=== PATIENT | male | born 1940 | race Caucasian/White ===

== ENCOUNTER 2017-05-03 14:43 | Observation (INO) ==
--- NOTE | 2017-05-03 15:15 | Emergency Department Note ---
Disposition Clinical Impression: Syncope due to orthostatic hypotension Disposition: Admitted As Inpatient Condition: Undetermined Referrals: NO,PCP [Non-Partnered Physician] - Forms: ED Satisfaction Letter Time of Disposition: 18:27 Syncope HPI - General Chief Complaint: ED Syncope Stated Complaint: "Passed Out Twice" Time Seen by Provider: 05/03/17 14:59 Source: patient, family Mode of arrival: wheelchair Limitations: no limitations Nursing Notes Reviewed: Yes Vital Signs Reviewed: Yes - History of Present Illness HPI Narrative: \\76-year-old male arrives to [facility] emergency department after having 2 syncopal episodes today. The patient stated that the patient was in the kitchen with her and was not "acting right" and the patient fell backwards and hit his head on the wall. The patient was out for roughly 1 minute. The patient woke up this and was baseline. The patient stated a roughly 20 minutes later when he was going from a laying to a standing position he "went out again" and woke up on the couch found by his . The patient recently started antihypertensive, lisinopril and has been keeping his blood pressures on record. The patient denies any chest pain, difficulty breathing, fever, chills, focalized weakness. The patient denies any previous history of syncope. Pt Subjective Complaint: loss of consciousness Onset (ago): unknown Duration: minutes(s) Prodromal Symptoms: lightheaded Witnessed: yes - by other () Injuries Sustained Associated with Event: head (Small hematoma) Current Symptoms: back to baseline History: none Treatments prior to arrival: none Associated trauma secondary to event: No - Related Data Allergies Allergy/AdvReac Type Severity Reaction Status Date / Time No Known Allergies Allergy Verified 05/03/17 14:47 All systems ED: reviewed and negative except as stated. Constitutional: Denies: fever, chills, weakness, weight change Eyes: Denies: eye pain, eye discharge, vision change ENT ED: Denies: ear pain, throat pain, dental pain, hearing loss, epistaxis, congestion, dysphagia Cardiovascular: Denies: chest pain, palpitations, dyspnea on exertion, edema, syncope Respiratory: Reports: as per HPI Gastrointestinal: Denies: abdominal pain, nausea, vomiting, diarrhea, constipation, hematemesis, melena, hematochezia Genitourinary: Denies: urgency, dysuria, frequency, hematuria Musculoskeletal: Denies: back pain, neck pain, arthralgia, myalgia Neurological: Denies: headache, weakness, numbness, paresthesias, confusion, abnormal gait, vertigo Past Medical History - Past Medical History Attestation: Yes The following information was validated with the patient. Source: patient Medical history: Reports: diabetes, hyperlipidemia Surgical history: Reports: non-contributory - Social History Smoking Status: Current every day smoker Alcohol use: Reports: none Drug use: Reports: none Physical Exam Physical Exam: General: Patient alert, no acute distress, not lethargic HEENT: Head normal inspection, atraumatic, PERRLA, oropharynx grossly intact and normal, trachea midline, no JVD, small hematoma on crown of head Chest: Nontraumatic, nontender, normal chest rise CV: RRR with no murmurs, rubs, gallops Respiratory: Lungs clear to auscultation bilaterally, no rales, rhonchi, wheezes. Abdomen: Normal inspection, Normal bowel sounds 4 quadrants, nontender to palpation : Patient deferred Extremities: Normal inspection, full range of motion, appropriate pulses, capillary refill under 2 seconds Neurological: Patient alert and oriented 3, cranial nerves II through XII grossly intact, GCS 15, muscle strength 5/5 bilaterally in upper and lower extremities. No paresthesias noted Skin: Warm, intact, no rashes noted - General Limitations: no limitations General appearance: alert, in no apparent distress Course Vital Signs Temperature 98.3 F 05/03/17 14:45 Pulse Rate 77 05/03/17 14:45 Respiratory Rate 18 05/03/17 14:45 Blood Pressure 147/68 05/03/17 14:45 O2 Sat by Pulse Oximetry 97 05/03/17 14:45 Temperature 98.3 F 05/03/17 14:45 Pulse Rate 96 05/03/17 17:51 Respiratory Rate 18 05/03/17 17:51 Blood Pressure 121/60 05/03/17 17:51 O2 Sat by Pulse Oximetry 96 05/03/17 17:51 Oxygen Delivery Oxygen Delivery Room Air Syncope - Lab Data Result diagrams: 05/03/17 15:29 05/03/17 15:29 Lab Results 05/03/17 05/03/17 05/03/17 Range/Units 14:48 15:29 15:29 WBC 8.6 (4.3-11.1) K/mcL RBC 3.93 L (4.19-5.50) M/mcL Hgb 12.7 L (12.9-16.9) g/dL Hct 37.3 L (37.5-50.1) % MCV 94.9 (83.0-100.0) fL MCH 32.3 (28.0-33.3) pg MCHC 34.0 (31.6-35.5) g/dL RDW 12.9 (11.5-14.5) % Plt Count 265 (140-400) K/mcL MPV 9.4 (9.4-12.4) fL Immature Gran % 0.4 (0-4) % Seg Neutrophils % 68.5 % Lymphocytes % 22.3 % Monocytes % 6.8 % Eosinophils % 1.5 % Basophils % 0.5 % Neutrophils # 5.9 (1.6-8.9) K/mcL Lymphocytes # 1.9 (0.6-4.6) K/mcL Monocytes # 0.6 (0.0-1.3) K/mcL Eosinophils # 0.1 (0.0-0.6) K/mcL Basophils # 0.0 (0.0-0.2) K/mcL Sodium 138 (136-145) mEq/L Potassium 4.6 H (3.5-4.5) mEq/L Chloride 104 (98-109) mEq/L Carbon Dioxide 25 (19-29) mEq/L BUN 35 H (8-26) mg/dL Creatinine 1.51 H (0.72-1.25) mg/dL Est GFR ( Amer) 54 L (> 60) Est GFR (Non-Af Amer) 45 L (> 60) BUN/Creatinine Ratio 23 (6-26) Glucose 126 H (70-99) mg/dL POC Glucose 177 H (58-89) Calculated Osmolality 296 (280-300) Calcium 9.3 (8.6-10.8) mg/dL Total Bilirubin 0.5 (0.2-1.2) mg/dL AST 10 (5-34) Units/L ALT 8 (0-55) Units/L Alkaline Phosphatase 61 (38-126) Units/L Troponin I (0-0.03) ng/mL Serum Total Protein 7.0 (6.0-8.3) g/dL Albumin 3.7 (3.5-5.0) g/dL Globulin 3.3 (2.4-3.5) g/dL Albumin/Globulin Ratio 1.1 (1.1-2.2) /07/12 Range/Units 15:29 WBC (4.3-11.1) K/mcL RBC (4.19-5.50) M/mcL Hgb (12.9-16.9) g/dL Hct (37.5-50.1) % MCV (83.0-100.0) fL MCH (28.0-33.3) pg MCHC (31.6-35.5) g/dL RDW (11.5-14.5) % Plt Count (140-400) K/mcL MPV (9.4-12.4) fL Immature Gran % (0-4) % Seg Neutrophils % % Lymphocytes % % Monocytes % % Eosinophils % % Basophils % % Neutrophils # (1.6-8.9) K/mcL Lymphocytes # (0.6-4.6) K/mcL Monocytes # (0.0-1.3) K/mcL Eosinophils # (0.0-0.6) K/mcL Basophils # (0.0-0.2) K/mcL Sodium (136-145) mEq/L Potassium (3.5-4.5) mEq/L Chloride (98-109) mEq/L Carbon Dioxide (19-29) mEq/L BUN (8-26) mg/dL Creatinine (0.72-1.25) mg/dL Est GFR ( Amer) (> 60) Est GFR (Non-Af Amer) (> 60) BUN/Creatinine Ratio (6-26) Glucose (70-99) mg/dL POC Glucose (58-89) Calculated Osmolality (280-300) Calcium (8.6-10.8) mg/dL Total Bilirubin (0.2-1.2) mg/dL AST (5-34) Units/L ALT (0-55) Units/L Alkaline Phosphatase (38-126) Units/L Troponin I 0.00 (0-0.03) ng/mL Serum Total Protein (6.0-8.3) g/dL Albumin (3.5-5.0) g/dL Globulin (2.4-3.5) g/dL Albumin/Globulin Ratio (1.1-2.2) - EKG Data EKG attestation: Yes I reviewed and interpreted this EKG. EKG results narrative: Heart rate 70 bpm. DE interval 107 ms. QTC 419 ms. Normal axis. Normal sinus rhythm with right bundle branch block. No ST elevation or ST depression noted. New right bundle branch block from EKG from 12/14/2011. No other acute changes noted.
--- NOTE | 2017-05-03 15:30 | Emergency Department Note ---
START Narrative - START START: I examined this patient and my medical decision-making was reviewed with the CONCRETE FENCE BUILDER/PA/Advanced Practice Nurse/Resident Physician. I agree with the documented findings, disposition and treatment plan as described except to the extent set forth below. ED attending note: I saw this Patient with the emergency medicine resident Dr. Paz. Please see a copy of his note for details of the H&P, evaluation, management and disposition of this emergency Department patient. We independently had [id number] contact with the patient. Briefly: 76-year-old male history of hypertension presents ambulatory with syncope 2. No prior episodes. Had his lisinopril formulation changed over the past week or so. One episode occurred while sitting the other one occurred from a rising position. The total duration was 1 minute. He awoke at baseline mental status. He is awake and alert GCS 15 NIH is 0. EKG shows what appears to be new right bundle-branch block. However the available old EKG is from 2011. Patient will get screening workup and consisting of screening labs noncontrast CT of the head urinalysis among others. Provided 40 minutes of critical care services for this patient. Disposition pending.
[2017-05-03 15:40] LABS: Basophils % 0.5 %; Eosinophils # 0.1 K/mcL (0.0-0.6); Eosinophils % 1.5 %; Hematocrit 37.3 % (37.5-50.1); Hemoglobin 12.7 g/dL (12.9-16.9); Immature Granulocytes % 0.4 % (0-4); Lymphocytes # 1.9 K/mcL (0.6-4.6); Lymphocytes % 22.3 %; Mean Corpuscular Hemoglobin 32.3 pg (28.0-33.3); Mean Corpuscular Volume 94.9 fL (83.0-100.0); Mean Platelet Volume 9.4 fL (9.4-12.4); Monocytes # 0.6 K/mcL (0.0-1.3); Monocytes % 6.8 %; Neutrophils # 5.9 K/mcL (1.6-8.9); Platelet Count 265 K/mcL (140-400); Red Blood Count 3.93 M/mcL (4.19-5.50); Red Cell Distribution Width 12.9 % (11.5-14.5); Segmented Neutrophils % 68.5 %
[2017-05-03 15:50] LABS: Albumin 3.7 g/dL (3.5-5.0); Albumin/Globulin Ratio 1.1 (1.1-2.2); Bilirubin,Total 0.5 mg/dL (0.2-1.2); Calcium 9.3 mg/dL (8.6-10.8); Globulin 3.3 g/dL (2.4-3.5); Potassium 4.6 mEq/L (3.5-4.5)
[2017-05-03] MEDS ORDERED: 0.9 % Sodium Chloride 1,000 ML IVC ONE (16:00)
[2017-05-03] MEDS ORDERED: Naloxone 0.4 MG/ML INJ IVP PRN (23:10)
[2017-05-03] MEDS ORDERED: *HR* HYDROcodone/Acet 5/325 mg TABLET PO PRN (23:10)
[2017-05-03] MEDS ORDERED: Acetaminophen 325 MG TABLET PO PRN (23:10)
[2017-05-03] MEDS ORDERED: Ondansetron 4 MG/2 ML VIAL IVP PRN (23:10)
[2017-05-03] MEDS ORDERED: *HR* Morphine 2 MG/ML SYRINGE IVP PRN (23:10)
[2017-05-03] MEDS ORDERED: Dextrose Gel 15 GM PO PRN ×2 (23:27)
[2017-05-03] MEDS ORDERED: *HR* Dextrose 50 % in Water (Syg) 50 ML SYRINGE IVP PRN (23:27)
[2017-05-03] MEDS ORDERED: D5% in Water 1,000 ML IVC PRN (23:27)
--- NOTE | 2017-05-03 23:43 | Event Note ---
Date of Encounter: 05/04/17 Time of Encounter: 23:43 . 1. Syncopal episodes due to Orthostatic hypotension likely secondary to dehydration Fall precautions, continue IV fluids, hold blood pressure medications Check echocardiogram May repeat orthostatics in the morning 2. Acute renal failure likely secondary to dehydration and also increase in the dosing of his lisinopril Hold blood pressure medications including hydrochlorothiazide and lisinopril Continue fluids 3. Diabetes type 2, continue insulin sliding scale 4. Tobacco use. Smoking cessation counseling, nicotine patch 5. Hyperlipidemia, stable The patient will be admitted for observation, full code. Time spent on this admission 40 minutes. H&P to be written by nurse practitioner Roberto Vallejo
--- NOTE | 2017-05-03 23:54 | Internal Med History&Physical ---
<LisabaronmichaelRoberto alarcon - Last Filed: 05/04/17 00:52> Date of Encounter: 05/04/17 Time of Encounter: 23:53 Assessment and Plan (1) Syncope due to orthostatic hypotension Current visit: Yes Status: Acute Assess: Mr. Simons presents with chief complaint of 2 syncopal episodes earlier today. First episode occurred in the kitchen the patient fell backwards and hit his head on the wall and was unconscious for approximately 1 minute. 20 minutes later the patient was laying down and moved to a standing position and passed out again. He was found by his . Patient reports these symptoms syncopal episodes have never happened before. Plan: Orthostatic BPs ordered Orthostatic vital signs ordered Begin IV fluids judiciously for dehydration status due to acute renal failure Bilateral carotid Doppler duplex imaging ordered EV echocardiogram ordered Continuous cardiac telemetry ordered Supplemental O2 ordered Hold patient's BP medication Falls precautions/bedrest with bathroom privileges/[id number] only orders Monitor patient and vital signs (2) Acute renal failure Current visit: Yes Status: Acute Assess: Patient presents with acute renal failure likely secondary to dehydration and due to dosage change in patient's Lisinopril. Plan: Hold BP medications IV fluids 0.9 NS at 75 mL/HR Monitor I&O Qualifiers: Acute renal failure type: unspecified Qualified Code(s): N17.9 - Acute kidney failure, unspecified (3) Diabetes Current visit: Yes Status: Chronic Assess: Patient presents with history of type 2 diabetes managed by oral hypoglycemic medications. Plan: Blood glucose monitoring ordered ACHS Hold Metformin Low-dose correction insulin ordered Hypoglycemic protocol ordered Diabetic diet ordered Qualifiers: Diabetes mellitus type: type 2 Diabetes mellitus complication status: without complication Diabetes mellitus nursing home insulin use: without nursing home use Qualified Code(s): E11.9 - Type 2 diabetes mellitus without complications (4) Hyperlipidemia Current visit: Yes Status: Chronic Assess: Patient presents with history of chronic hyperlipidemia. Plan: Lipid panel ordered Continue Simvastatin Qualifiers: Hyperlipidemia type: unspecified Qualified Code(s): E78.5 - Hyperlipidemia , unspecified (5) Hypertension Current visit: Yes Status: Chronic Assess: Patient presents with history of chronic hypertension. Patient's lisinopril dosage was recently increased by his PCP. Plan: Hold Lisinopril due to syncopal episodes r/t orthostatic hypotension Orthostatic BPs ordered Orthostataic vital signs ordered Monitor patient and vital signs Qualifiers: Hypertension type: essential hypertension Qualified Code(s): I10 - Essential (primary) hypertension (6) Tobacco abuse Current visit: Yes Status: Chronic Assess: Patient presents with history of chronic tobacco abuse. Patient reports he currently smokes 1 pack per day. Plan: Smoking cessation education provided to patient Nicotine patch ordered (7) DVT prophylaxis Current visit: Yes Status: Acute Assess: Patient to be placed on DVT prophylaxis to to inpatient status protocol and bed rest status. Plan: Heparin 5,000 units SQ Q8 ordered Internal Medicine - H&P: HPI Chief complaint: Syncope Admitted From: Emergency Dept Plans for Post Hospital Care: Home History of present illness: Mr. Simons is a 76 year old male who presents to the ED with chief complaint of 2 syncopal episodes earlier today. First episode occurred in the kitchen the patient fell backwards and hit his head on the wall and was unconscious for approximately 1 minute. 20 minutes later the patient was laying down and moved to a standing position and passed out again. He was found by his . Patient also reports having headaches in the front of his head as well as the back lasting for several seconds coinciding with dizziness and syncopal episodes. He reports these headaches have been going on for the past 2 years. Patient states he has never blacked out before. Mr. Simons denies any chest pain, SOB, fever, chills, recent illness, localized or generalized weakness. Patient recently started lisinopril and hydrochlorothiazide for his blood pressures which he keeps records of daily. Mr. Simons has a history of diabetes managed with oral hypoglycemics, hyperlipidemia, hypertension. Patient denies any previous cardiac history. Patient reports he is a current smoker smoking 1 pack per day. On exam, patient has no neurological deficits Whole weakness on either side of his body. There is no evidence of facial drooping or hemiparesis on either side of patient's body. Patient has heart murmur evident upon auscultation. Patient to be admitted as inpatient status with continuous cardiac telemetry, orthostatic BPs and vitals twice a day, MRI of head and brain without contrast, bilateral carotid duplex imaging, stat chest x-ray, and IV fluids at 75 mL per hour. Patient is falls precautions bedrest with bathroom privileges and up with assist only. Patient to be monitored closely. Past Med Surg Social Fam HX - Past Medical History Source: patient Medical history: diabetes, hyperlipidemia, hypertension Psychiatric history: no psych history - Past Surgical History Surgical History: no surgical history - Social History Smoking Status: Current every day smoker Packs per day: 1 PPD Alcohol use: none Drug use: none Occupational status: employed Current living situation: Home, With Family Activity Level: Independent ambulation Recent Out of Country Travel Within the Last 8 Weeks: No Exposure or Possible Exposure to Illness During Travel: No - Family History Father Race: Family Member Ethnicity: Non- Living Status: Age at : 63 Cause of : PA Hx Family Cardiac Disorders: Yes (PA, Stroke) Mother Race: Family Member Ethnicity: Non- Living Status: Age at : 80 Cause of : Leukemia Hx Family Cancer: Yes (Leukemia) Brother Race: Family Member Ethnicity: Non- Living Status: Still Living Hx Family Cardiac Disorders: Yes (HD) Internal Medicine - H&P: Meds Felodipine [Felodipine ER] 10 mg PO DAILY 05/03/17 [History] Lisinopril/Hydrochlorothiazide [Zestoretic 20-12.5 mg Tablet] 1 each PO BID 07/12 [History] Simvastatin [Zocor] 20 mg PO HS 05/03/17 [History] metFORMIN [Glucophage] 850 mg PO TIDWM 05/03/17 [History] Allergies No Known Allergies Allergy (Verified 05/03/17 14:47) All Systems PM: A 10-system review of systems was performed and is negative for pertinent findings except as documented above in the HPI. - Constitutional Constitutional: as per HPI, falls (2 syncopal episodes), no chills, no fever(s) , no night sweats - EENT Eyes: no change in vision, no discharge, no pain, no photophobia Ears: no ear discharge, no ear pain, no tinnitus Nose, mouth and throat: no dysphagia, no nasal discharge, no neck pain, no sore throat - Breasts Breasts: as per HPI - Cardiovascular Cardiovascular ROS IM: as per HPI, syncope - Respiratory Respiratory: no cough, no dyspnea, no wheezing, no excessive phlegm production - Gastrointestinal Gastrointestinal: no abdominal pain, no diarrhea, no hematemesis, no hematochezia, no melena, no nausea, no vomiting - Genitourinary Genitourinary ROS male: as per HPI - Musculoskeletal Musculoskeletal ROS IM: no numbness, no tingling - Integumentary Integumentary IM: no rash, no unusual bruising - Neurological Neurological ROS: as per HPI, headache(s), other (2 syncopal episodes) - Psychiatric Psychiatric: as per HPI - Endocrine Endocrine IM: as per HPI - Hematologic/Lymphatic Hematologic/Lymphatic: no easy bruising - Allergic/Immunologic Allergic/Immunologic: as per HPI - Constitutional Vitals: Temp Pulse Resp BP Pulse Ox 98.1 F 59 16 152/57 95 05/03/17 21:58 05/03/17 21:58 05/03/17 21:58 05/03/17 21:58 05/03/17 21:58 General appearance: Present: cooperative, A&O X 3, pleasant, no acute distress, answers questions appropriately - Head Head exam: Present: atraumatic, normocephalic - Eye Eye exam: Present: PERRL, conjuntiva pink, sclera anicteric Pupils: Present: PERRL - ENT ENT exam: Present: normal exam, normal external ear exam - Neck Neck exam general surgery: Present: supple, trachea midline. Absent: lymphadenopathy - Respiratory Respiratory exam: Present: decreased breath sounds - Cardiovascular Cardiovascular exam: Present: diastolic murmur - GI/Abdominal GI/Abdominal exam: Present: normal bowel sounds, soft, no peritoneal signs. Absent: distended, tenderness - Rectal Rectal exam: Present: deferred - Additional comments: exam deferred. - Extremities Exam Extremities exam: Present: warm, radial pulses palpable and symetrical. Absent : calf tenderness, cyanotic, pedal edema - Back Exam Back exam: Present: normal inspection - Neurological Exam Neurological exam: Present: CN II-XII intact, oriented X3, no focal deficits. Absent: pronater drift, facial droop, speech deficit - Psychiatric Psychiatric exam: Present: normal affect, normal mood - Skin Skin exam: Present: dry, intact Internal Med - H&P Results - Labs CBC & Chem 7: 05/03/17 15:29 05/03/17 15:29 - EKG Data EKG shows normal: sinus rhythm - EKG Data Prior EKG available for review: yes EKG comments: 05/04/17 00:28 EKG dated 12/14/11 shows sinus bradycardia, inferior S-T changes, consider ischemia. EKG dated 05/03/17 shows sinus rhythm with short FL interval, right bundle branch block. - Diagnostic Studies CT scan - head Additional comments: Impressions Head CT 05/03/17 15:10 IMPRESSION: No acute intracranial abnormality. D/ / 05/03/2017 17:18:34 Christopher Durham MD / denisse Interpreting Provider: Christopher Durham MD <AlmitaLandenrosemarieJaspreet costello H - Last Filed: 05/04/17 04:18> Date of Encounter: 05/04/17 Internal Medicine - H&P: HPI History of present illness: Mr. Simons is a 76 year old male All Systems PM: A 10-system review of systems was performed and is negative for pertinent findings except as documented above in the HPI. - Constitutional Vitals: Temp Pulse Resp BP Pulse Ox 97.7 F 55 16 112/63 92 05/04/17 00:39 05/04/17 00:39 05/04/17 00:39 05/04/17 00:39 05/04/17 00:39 Internal Med - H&P Results - Labs CBC & Chem 7: 05/03/17 15:29 05/03/17 15:29 - Impressions ITS Impressions Chest X-Ray 05/03/17 23:18 IMPRESSION: 1. No acute cardiopulmonary disease. D/ / Sincere Murray MD / Sincere Murray MD Interpreting Provider: Sincere Murray MD - Attending Attestation 1. Syncopal episodes due to Orthostatic hypotension likely secondary to dehydration Fall precautions, continue IV fluids, hold blood pressure medications Check echocardiogram May repeat orthostatics in the morning 2. Acute renal failure likely secondary to dehydration and also increase in the dosing of his lisinopril Hold blood pressure medications including hydrochlorothiazide and lisinopril Continue fluids 3. Diabetes type 2, continue insulin sliding scale 4. Tobacco use. Smoking cessation counseling, nicotine patch 5. Hyperlipidemia, stable The patient will be admitted for observation, full code. Time spent on this admission 40 minutes. I examined this patient and my medical decision-making was reviewed with the WOOD TECHNOLOGIST/PA/Advanced Practice Nurse/Resident Physician. I agree with the documented findings, disposition and treatment plan as described except to the extent set forth below.
[2017-05-04] MEDS: *HR* Heparin 5,000 UNIT/ML VIAL SQ SCH ×3 (00:47→15:25)
[2017-05-04] MEDS: 0.9 % Sodium Chloride 1,000 ML IVC SCH ×2 (00:47→17:11)
[2017-05-04] MEDS: Nicotine 21 MG PATCH.TD24 TD SCH ×2 (00:48→08:36)
[2017-05-04] MEDS: Ipratropium/Albuterol Neb 3 ML IH SCH ×4 (03:53→22:47)
[2017-05-04 05:28] LABS: Basophils % 0.4 %; Eosinophils # 0.2 K/mcL (0.0-0.6); Eosinophils % 2.9 %; Hematocrit 36.1 % (37.5-50.1); Immature Granulocytes % 0.6 % (0-4); Lymphocytes # 1.9 K/mcL (0.6-4.6); Lymphocytes % 26.2 %; Mean Corpuscular HGB Conc 33.2 g/dL (31.6-35.5); Mean Corpuscular Hemoglobin 31.7 pg (28.0-33.3); Mean Corpuscular Volume 95.3 fL (83.0-100.0); Mean Platelet Volume 9.5 fL (9.4-12.4); Monocytes # 0.7 K/mcL (0.0-1.3); Monocytes % 9.8 %; Neutrophils # 4.3 K/mcL (1.6-8.9); Platelet Count 225 K/mcL (140-400); Red Blood Count 3.79 M/mcL (4.19-5.50); Red Cell Distribution Width 12.9 % (11.5-14.5); Segmented Neutrophils % 60.1 %
[2017-05-04 05:49] LABS: INR 1.1
[2017-05-04 05:52] LABS: Activated Partial Thrombo Time 28.6 Seconds (26.0-36.0); Alanine Aminotransferase 7 Units/L (0-55); Albumin 3.3 g/dL (3.5-5.0); Albumin/Globulin Ratio 1.1 (1.1-2.2); Alkaline Phosphatase 57 Units/L (38-126); Aspartate Amino Transferase 10 Units/L (5-34); BUN/Creatinine Ratio 24 (6-26); Bilirubin,Total 0.4 mg/dL (0.2-1.2); Blood Urea Nitrogen 29 mg/dL (8-26); Calcium 8.9 mg/dL (8.6-10.8); Carbon Dioxide 25 mEq/L (19-29); Chloride 108 mEq/L (98-109); Chol/HDL Ratio 3.9 (0-4.9); Cholesterol 133 mg/dL (< 200); Globulin 2.9 g/dL (2.4-3.5); Glucose 117 mg/dL (70-99); HDL Cholesterol 34 mg/dL (40-59); LDL Cholesterol,Calculated 79 mg/dL (0-99); Magnesium 2.1 mg/dL (1.6-2.6); Osmolality,Calculated 299 (280-300); Potassium 4.2 mEq/L (3.5-4.5); Sodium 141 mEq/L (136-145); Total Protein 6.2 g/dL (6.0-8.3); Triglycerides 99 mg/dL (< 150); eGFR For African Americans > 60 (> 60); eGFR For Non-African Americans 59 (> 60)
[2017-05-04] MEDS: Insulin LISPRO 300 UNITS/3 ML VIAL SQ SCH ×3 (08:03→17:07)
[2017-05-04] MEDS ORDERED: Lisinopril-HCTZ 20-12.5mg TABLET PO SCH (09:00)
--- NOTE | 2017-05-04 11:41 | Internal Med Progress Note ---
<Juan Pablo Buchanan - Last Filed: 05/04/17 14:19> Date of Encounter: 05/04/17 Time of Encounter: 13:00 - Assessment and plan (1) Syncope due to orthostatic hypotension Current Visit: Yes Status: Acute Assessment and plan: Patient reportedly had 2 syncopal episodes at home prior to admission to [facility]. With patient description of syncopal events, seems likely that his syncopal episodes were account of orthostatic hypotension/ dehydration due to his recently added lisinopril/hydrochlorothiazide. There is no description of headache, chest pain, lightheadedness, post ictal state, or description of seizure activity. Workup so far for potential CVA/TIA has been negative: Negative head CT, negative brain MRI, negative chest x-ray. Will wait for results of bilateral carotid Dopplers and echocardiogram. Likely syncopal episodes due to orthostatic hypotension Patient received 1 L bolus fluids followed by normal saline 75 mL an hour We will continue fluids and allow patient to take by mouth We will continue to monitor I's and O's We will continue patient on cardiac telemetry Continue supplemental oxygen as needed, wean as tolerated Continue to hold patient's blood pressure medication Continue monitoring patient vital signs per protocol Fall precautions/up with assist (2) Acute kidney injury Current Visit: Yes Status: Acute Assessment and plan: Patient has no known history of chronic kidney disease and her presentation to [facility] was found to have a elevated serum creatinine at 1.51. His elevation serum creatinine is disproportionate to the elevated BUN of 35, with a ratio greater than 20:1 would suggest possible dehydration contributing to his acute kidney injury. He received 1 L bolus fluids and has been continued on 75 mL per hour normal saline, he is found to have improved renal function this morning of serum creatinine 1.19, Maricel Quiles evidence to the thought that this is due to dehydration. We will continue to hold his blood pressure medications (lisinopril/ hydrochlorothiazide) We will continue IV fluids with normal saline at 75 mL an hour Continue to monitor patient I's and O's We will obtain renal function with morning chemistry panel (3) Hypertension Current Visit: Yes Status: Chronic Assessment and plan: Patient has history of essential hypertension for which she is PCP had begun treatment with lisinopril/hydrochlorothiazide on 03/29/17. He was reportedly taking 40/25 mg for the last month, with reported occasional hypotensive episodes. Although he has been eating and drinking his normal amount, he does report significant increase in urine on account of the hydrochlorothiazide. Reports sign vitals were negative. We will continue to hold patient blood pressure medication, will likely need change of home antihypertensive medications prior to discharge We will continue to monitor patient vitals and telemetry Consider changing blood pressure medication to amlodipine given patient age, will consider history of diabetes when adjusting patient antihypertensive regimen Qualifiers: Hypertension type: essential hypertension Qualified Code(s): I10 - Essential (primary) hypertension (4) Diabetes Current Visit: Yes Status: Chronic Assessment and plan: Patient normally uses oral hypoglycemic medications at home Hold metformin Before meals at bedtime blood glucose monitoring Diabetic diet Low dose sliding scale insulin before meals at bedtime Qualifiers: Diabetes mellitus type: type 2 Diabetes mellitus complication status: without complication 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 He is on home dose simvastatin. Lipid panel unremarkable except for slightly decreased HDL. Continue home simvastatin (20 mg by mouth at bedtime) Qualifiers: Hyperlipidemia type: unspecified Qualified Code(s): E78.5 - Hyperlipidemia , unspecified (6) DVT prophylaxis Current Visit: Yes Status: Acute Assessment and plan: 5000 units heparin subcutaneous 3 times a day - Subjective Interval history: Patient is doing well today. He denies any concerns/complaints currently. He denies any headache, dizziness, chest pain, palpitations, nausea/vomiting, diaphoresis. When stood up at bedside he does state that he feels slightly "wobbly." When asked about previous episodes of syncope department the hospital, he denies any preceding headaches, dizziness, or lightheadedness. He also denies having any episodes of confusion or fogginess after the event and denies having postictal state. He states that a few days prior to the event occurring felt like he had a little bit of a cold, but no serious illnesses. He does report that he was started on lisinopril/hydrochlorothiazide combined pill for blood pressure on 03/29/17 and that since starting that medication he had a few days of hypotension when he checked his blood pressure, prompting him not to take the medication that day. He also states that although he has been drinking his normal amount, he has been urinating a fair bit more on account of the hydrochlorothiazide. - Constitutional Vitals: Temp Pulse Resp BP Pulse Ox 97.8 F 57 16 138/59 96 05/04/17 08:00 05/04/17 08:00 05/04/17 08:00 05/04/17 09:00 05/04/17 08:00 General appearance: Present: cooperative, A&O X 3, pleasant, no acute distress, answers questions appropriately Exam: General: Cooperative, pleasant, no acute distress, alert and oriented 3, answers questions appropriately, patient reports some "wobbly" feeling and slight lightheadedness after standing a couple months HEENT: Normocephalic, atraumatic, neck supple, trachea midline, Conjunctiva pink , sclera anicteric, EOMI, PERRL, oral mucosa moist, no orophargeal erythema or exudates, slight bruit auscultated inpatient right carotid Respiratory: No accessory muscle usage, clear to auscultation bilaterally, no wheezes/rhonchi/rales appreciated Cardiovascular: Regular rate and rhythm, S1 and S2 present, no murmurs/rubs/ gallops/clicks appreciated GI/abdominal: Nondistended, nontender, soft, normal bowel sounds, no peritoneal signs Extremities: No calf tenderness, noncyanotic, no pedal edema appreciated, warm, lower extremity pulses palpable and symmetrical Neurological: Alert and oriented 3, no facial droop, no focal deficits Skin: Dry, intact, normal color Internal Medicine: Result - Labs CBC & Chem 7: 05/04/17 04:49 05/04/17 04:49 Labs: Short CBC 05/04/17 Range/Units 04:49 WBC 7.2 (4.3-11.1) K/mcL Hgb 12.0 L (12.9-16.9) g/dL Hct 36.1 L (37.5-50.1) % Plt Count 225 (140-400) K/mcL Neutrophils # 4.3 (1.6-8.9) K/mcL BMP 05/04/17 04:49 Sodium 141 Potassium 4.2 Chloride 108 Carbon Dioxide 25 BUN 29 H Creatinine 1.19 Glucose 117 H Calcium 8.9 Liver Function 05/04/17 Range/Units 04:49 Total Bilirubin 0.4 (0.2-1.2) mg/dL AST 10 (5-34) Units/L ALT 7 (0-55) Units/L Alkaline Phosphatase 57 (38-126) Units/L Albumin 3.3 L (3.5-5.0) g/dL - ABG Interpretation ABG results: PT/INR, D-dimer PT 12.0 Seconds (9.4-12.1) 05/04/17 04:49 - Impressions Impressions Chest X-Ray 05/03/17 23:18 IMPRESSION: 1. No acute cardiopulmonary disease. D/ / Sincere Murray MD / Sincere Murray MD Interpreting Provider: Sincere Murray MD Consult Discharge Plan - Plan Referrals: Silverman,Linwood Che MD [Primary Care Provider] - <Emanuel Lacey - Last Filed: 05/04/17 15:37> Date of Encounter: 05/04/17 - Constitutional Vitals: Temp Pulse Resp BP Pulse Ox 98.0 F 56 17 169/64 92 05/04/17 12:00 05/04/17 12:00 05/04/17 12:00 05/04/17 12:00 05/04/17 12:00 Internal Medicine: Result - Labs CBC & Chem 7: 05/04/17 04:49 05/04/17 04:49 Labs: Short CBC 05/04/17 Range/Units 04:49 WBC 7.2 (4.3-11.1) K/mcL Hgb 12.0 L (12.9-16.9) g/dL Hct 36.1 L (37.5-50.1) % Plt Count 225 (140-400) K/mcL Neutrophils # 4.3 (1.6-8.9) K/mcL BMP 05/04/17 04:49 Sodium 141 Potassium 4.2 Chloride 108 Carbon Dioxide 25 BUN 29 H Creatinine 1.19 Glucose 117 H Calcium 8.9 Liver Function 05/04/17 Range/Units 04:49 Total Bilirubin 0.4 (0.2-1.2) mg/dL AST 10 (5-34) Units/L ALT 7 (0-55) Units/L Alkaline Phosphatase 57 (38-126) Units/L Albumin 3.3 L (3.5-5.0) g/dL - ABG Interpretation ABG results: PT/INR, D-dimer PT 12.0 Seconds (9.4-12.1) 05/04/17 04:49 - Impressions Impressions Chest X-Ray 05/03/17 23:18 IMPRESSION: 1. No acute cardiopulmonary disease. D/ / Sincere Murray MD / Sincere Murray MD Interpreting Provider: Sincere Murray MD Brain MRI 05/03/17 23:26 IMPRESSION: Cerebral atrophy. No acute brain parenchymal abnormality. Mild mucoperiosteal thickening of the sinuses. D/ / 05/04/2017 12:57:14 Noemy Blandon MD / madi Interpreting Provider: Noemy Blandon MD - Attending Attestation I examined this patient and my medical decision-making was reviewed with the BUSINESS MANAGEMENT SPECIALIST/PA/Advanced Practice Nurse/Resident Physician. I agree with the documented findings, disposition and treatment plan as described except to the extent set forth below. Agree with Dr. Buchanan, follow echo, obtain TSH. D/W patient and his family.
[2017-05-04] MEDS: (Felodipine [Felodipine Er] 10 MG) PO SCH (12:04)
--- NOTE | 2017-05-04 16:41 | Carotid Imaging Report ---
Carotid Duplex Patient Name:Jac Simons Order Number:[id number] Procedure Date:05/04/2017 Date:1940ge:76 yrs Gender:Male Location:[facility] Room #: 2A36 Magistrate Judge:Jose Collazo RDCS Referring MD:Roberto Vallejo CNP log hooker:Linwood Silverman MD Reading MD:Eddie Borja MD Primary Indications:Syncope and headache Risk Factors Yes/No Hypertension Yes Diabetes Yes Hypercholesterolemia Yes Smoking Current Yes Previous Vascular Surgery Yes Impressions: The bilateral carotid arteries have minimal plaque throughout. Recommendations: After imaging the patient returned home. Findings Carotid Duplex: Right: There is nonstenotic plaque in the right proximal common carotid artery with a PSV of 94 cm/s and a EDV of 11 cm/s. There is smooth heterogeneous plaque. There is nonstenotic plaque in the right mid common carotid artery with a PSV of 80 cm/s and a EDV of 11 cm/s. There is smooth, heterogeneous calcified plaque. There is nonstenotic plaque in the right distal common carotid artery with a PSV of 70 cm/s and a EDV of 12 cm/s. There is smooth heterogeneous plaque. There is nonstenotic plaque in the right bifurcation with a PSV of 51 cm/s and a EDV of 10 cm/s. There is smooth, heterogeneous calcified plaque. There is nonstenotic plaque in the right proximal internal carotid artery with a PSV of 86 cm/s and a EDV of 15 cm/s. There is irregular, heterogeneous calcified plaque. There is nonstenotic plaque in the right mid internal carotid artery with a PSV of 88 cm/s and a EDV of 20 cm/s. There is smooth calcified plaque. The right distal internal carotid artery has a PSV of 116 cm/s and a EDV of 21 cm/s. The right eca has a PSV of 158 cm/s and a EDV of 19 cm/s. The right vertebral artery has a PSV of 77 cm/s and a EDV of 14 cm/s. Left: The left proximal common carotid artery has a PSV of 109 cm/s and a EDV of 19 cm/s. There is nonstenotic plaque in the left mid common carotid artery with a PSV of 86 cm/s and a EDV of 19 cm/s. There is smooth heterogeneous plaque. There is nonstenotic plaque in the left distal common carotid artery with a PSV of 87 cm/s and a EDV of 18 cm/s. There is smooth heterogeneous plaque. There is nonstenotic plaque in the left bifurcation with a PSV of 78 cm/s and a EDV of 13 cm/s. There is smooth, heterogeneous calcified plaque. There is nonstenotic plaque in the left proximal internal carotid artery with a PSV of 86 cm/s and a EDV of 16 cm/s. There is smooth heterogeneous plaque. There is nonstenotic plaque in the left mid internal carotid artery with a PSV of 109 cm/s and a EDV of 26 cm/s. There is smooth heterogeneous plaque. The left distal internal carotid artery has a PSV of 80 cm/s and a EDV of 18 cm/s. The left eca has a PSV of 217 cm/s and a EDV of 26 cm/s. The left vertebral artery has a PSV of 54 cm/s and a EDV of 16 cm/s. Prior Study: No prior study available for comparison. Carotid Results Right PSV EDV Assessment Proximal CCA 94 11 Non Stenotic Plaque Mid CCA 80 11 Non Stenotic Plaque Distal CCA 70 12 Non Stenotic Plaque Bifurcation 51 10 Non Stenotic Plaque Proximal ICA 86 15 Non Stenotic Plaque Mid ICA 88 20 Non Stenotic Plaque Distal ICA 116 21 Normal ECA 158 19 Normal Vertebral Artery 77 14 Normal Left PSV EDV Assessment Proximal CCA 109 19 Normal Mid CCA 86 19 Non Stenotic Plaque Distal CCA 87 18 Non Stenotic Plaque Bifurcation 78 13 Non Stenotic Plaque Proximal ICA 86 16 Non Stenotic Plaque Mid ICA 109 26 Non Stenotic Plaque Distal ICA 80 18 Normal ECA 217 26 Normal Vertebral Artery 54 16 Normal Ratio's Right ICA/CCA Ratio: 1.45 ICA/CCA Values: 116/80 Left ICA/CCA Ratio: 1.27 ICA/CCA Values: 109/86 Updated by Eddie Borja MD on 05/04/2017 4:35:09 PM electronically signed on 05/04/2017 4:37:39 PM with status of Final
[2017-05-04] MEDS ORDERED: Insulin LISPRO 300 UNITS/3 ML VIAL SQ SCH (21:00)
[2017-05-05] MEDS: *HR* Heparin 5,000 UNIT/ML VIAL SQ SCH ×2 (00:09→08:04)
[2017-05-05 03:12] LABS: BUN/Creatinine Ratio 22 (6-26); Blood Urea Nitrogen 23 mg/dL (8-26); Calcium 9.2 mg/dL (8.6-10.8); Carbon Dioxide 24 mEq/L (19-29); Chloride 109 mEq/L (98-109); Glucose 115 mg/dL (70-99); Osmolality,Calculated 299 (280-300); Potassium 4.1 mEq/L (3.5-4.5); Sodium 142 mEq/L (136-145); eGFR For African Americans > 60 (> 60); eGFR For Non-African Americans > 60 (> 60)
[2017-05-05] MEDS: Ipratropium/Albuterol Neb 3 ML IH SCH ×2 (04:27→11:52)
[2017-05-05] MEDS: Insulin LISPRO 300 UNITS/3 ML VIAL SQ SCH (08:03)
[2017-05-05] MEDS: Nicotine 21 MG PATCH.TD24 TD SCH (08:04)
[2017-05-05] MEDS: (Felodipine [Felodipine Er] 10 MG) PO SCH (08:04)
[2017-05-05] MEDS: 0.9 % Sodium Chloride 1,000 ML IVC SCH (08:06)
--- NOTE | 2017-05-05 08:54 | Electrocardiograph Report ---
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
[2017-05-05 11:57] VITALS: BP 176/72
--- NOTE | 2017-05-05 12:10 | Discharge Summary ---
Date of Encounter: 05/05/17 Time of Encounter: 12:07 - Discharge Diagnosis (1) Acute kidney injury Priority: Secondary Status: Acute (2) DVT prophylaxis Priority: Secondary Status: Acute (3) Syncope due to orthostatic hypotension Priority: Primary Status: Acute (4) Hypertension Priority: Secondary Status: Chronic Qualifiers: Hypertension type: essential hypertension Qualified Code(s): I10 - Essential (primary) hypertension (5) Tobacco abuse Priority: Secondary Status: Chronic - Discharge Medications Prescriptions: amLODIPine [Norvasc] 2.5 mg PO DAILY #7 tablet Home Medications: Simvastatin [Zocor] 20 mg PO HS 05/03/17 [History] metFORMIN [Glucophage] 850 mg PO TIDWM 05/03/17 [History] amLODIPine [Norvasc] 2.5 mg PO DAILY #7 tablet 05/05/17 [Rx] Allergies/Adverse Reactions: Allergies No Known Allergies Allergy (Verified 05/03/17 14:47) Procedures/tests Complete & Pending: Procedures Performed prior 72 hours Category Date Time Status MR head/brain wo con [MR] Routine MRI 05/03/17 23:26 Draft EV carotid duplex imaging BI Routine Y 05/04/17 23:21 Completed EV echocardiogram Routine Y 05/04/17 23:22 Completed Date of admission: 05/03/17 20:18 Primary care physician: Linwood Silverman MD Consults: 05/04/17 00:35 Consult to Physical Therapy [CONS] Routine Comment: Evaluate, develop and implement POC Reason for Consult: Patient had two syncopal episodes within one hour of each other Discharging clinician: Emanuel Lacey Anticipated date of discharge: 05/05/17 - Patient Status Disposition: Home, Self-Care Condition: Undetermined Functional capacity at discharge: independent ambulation Overall status at discharge: patient is back to baseline - Discharge Instructions Follow Up With: Linwood Silverman MD [Primary Care Provider] - - Diet and Activity Activity: increase activity as tolerated Interval History: As per HPI on admission: Mr. Simons is a 76 year old male who presents to the ED with chief complaint of 2 syncopal episodes earlier today. First episode occurred in the kitchen the patient fell backwards and hit his head on the wall and was unconscious for approximately 1 minute. 20 minutes later the patient was laying down and moved to a standing position and passed out again. He was found by his . Patient also reports having headaches in the front of his head as well as the back lasting for several seconds coinciding with dizziness and syncopal episodes. He reports these headaches have been going on for the past 2 years. Patient states he has never blacked out before. Mr. Simons denies any chest pain, SOB, fever, chills, recent illness, localized or generalized weakness. Patient recently started lisinopril and hydrochlorothiazide for his blood pressures which he keeps records of daily. Mr. Simons has a history of diabetes managed with oral hypoglycemics, hyperlipidemia, hypertension. Patient denies any previous cardiac history. Patient reports he is a current smoker smoking 1 pack per day. On exam, patient has no neurological deficits Whole weakness on either side of his body. There is no evidence of facial drooping or hemiparesis on either side of patient's body. Patient has heart murmur evident upon auscultation. Patient to be admitted as inpatient status with continuous cardiac telemetry, orthostatic BPs and vitals twice a day, MRI of head and brain without contrast, bilateral carotid duplex imaging, stat chest x-ray, and IV fluids at 75 mL per hour. Patient is falls precautions bedrest with bathroom privileges and up with assist only. Patient to be monitored closely. Hospital course: Mr. Simons is a 76 year old male admitted for syncope. Found to have acute kidney injury which improved with IV fluids. The patient was recently started on both TUNG inhibitor and hydrochlorothiazide for blood pressure control. He initially underwent workup for possible CVA, brain MRI was essentially unremarkable, without evidence of acute strokes. His EKG revealed a right bundle branch block , and a transthoracic echocardiogram was obtained, results were essentially unremarkable, it did confirm the findings of the right bundle branch block patient. At this point, the patient is asymptomatic, denies shortness of breath , chest pain, no more syncopal events. She is kidney function tests improved after IV hydration. His blood pressure is stable, we will discontinue both his TUNG inhibitor and his hydrochlorothiazide for now. The patient will follow up with his primary care physician next week on Sunday. In the meantime, for blood pressure control we will start a low-dose of amlodipine 2.5 mg daily. Jb plan was explained in detail to the patient, he verbally expressed understanding. - Time Spent with Patient Total time spent providing and/or coordinating discharge services: - Constitutional Vitals: Temp Pulse Resp BP Pulse Ox 97.6 F 57 18 176/72 96 05/05/17 11:55 05/05/17 11:55 05/05/17 11:55 05/05/17 11:55 05/05/17 11:55 General appearance: Present: cooperative, A&O X 3, pleasant, no acute distress, answers questions appropriately - Head Head exam: Present: atraumatic, normocephalic - Eye Eye exam: Present: PERRL, conjuntiva pink, sclera anicteric Pupils: Present: PERRL - Neck Neck exam general surgery: Present: supple, trachea midline. Absent: lymphadenopathy - Respiratory Respiratory exam: Present: CTAB. Absent: accessory muscle use, rales, rhonchi, wheezes - Cardiovascular Cardiovascular exam: Present: RRR, +S1, +S2. Absent: diastolic murmur, gallop, rubs, systolic murmur - GI/Abdominal GI/Abdominal exam: Present: normal bowel sounds, soft, no peritoneal signs. Absent: distended, tenderness - Extremities Exam Extremities exam: Present: warm, radial pulses palpable and symetrical. Absent : calf tenderness, cyanotic, pedal edema - Neurological Exam Neurological exam: Present: CN II-XII intact, oriented X3, no focal deficits. Absent: pronater drift, facial droop, speech deficit - Skin Skin exam: Present: dry, intact
== END 2017-05-05 12:50 | disposition home or self-care (01) ==
LOC: EMEROO 14:43 → 2ANU 14:43
PROVIDERS: ADMIT Internal Medicine Sleep Medicine; ATTEND Internal Medicine

== ENCOUNTER 2018-08-02 14:21 | Observation (INO) ==
--- NOTE | 2018-08-02 14:44 | Emergency Department Note ---
Disposition Clinical Impression: Facial droop, Slurred speech, Confusion Disposition: Admitted As Inpatient Condition: Good Referrals: Linwood Silverman MD [Primary Care Provider] - Forms: ED Satisfaction Letter Neuro HPI - General Chief Complaint: ED Neuro Symptoms/Deficit Stated Complaint: "dizzy spell,slurred speech,weakness" Time Seen by Provider: 08/02/18 14:35 Source: patient, family Mode of arrival: private vehicle Limitations: no limitations Nursing Notes Reviewed: Yes Vital Signs Reviewed: Yes - History of Present Illness HPI Narrative: 77-year-old male history of diabetes who presents to the ER with a complaint of slurred speech, dizziness. Patient is comfortable by family. Reports that at 13:15 today he was outside. Family states he was slurring words and they noticed a facial droop on the right side of his face. States he was still coherent during this time. He ate breakfast and lunch but had been outside most of the morning. Patient went in for evaluation. Denies prior history of CVA. Symptoms improved in route and had nearly resolved at time of arrival. The patient currently has no complaints. Denies any headaches or visual changes. No numbness tingling or paresthesias. No focal weakness. No chest pain or shortness of breath. No other complaints. Onset of Symptoms Date: 08/02/18 Onset of Symptoms Time: 13:15 Timing confirmed by: family member Location: speech, right face History of same: No Severity: mild Symptoms Improving: Yes Improves with: none Worsens with: none Context: sudden onset On Anticoagulants: No Associated symptoms: Denies: confusion, chest pain, headaches, syncope Treatments Prior to Arrival: none - Related Data Home Medications: Home Medications Medication Instructions Recorded Confirmed Simvastatin [Zocor] 20 mg PO HS 05/03/17 08/02/18 metFORMIN [Glucophage] 850 mg PO TIDWM 05/03/17 08/02/18 Cyanocobalamin (Vitamin B-12) 1,000 mcg PO DAILY 08/02/18 08/02/18 [Vitamin B12] Ferrous Sulfate 325 mg PO DAILY 08/02/18 08/02/18 Previous Rx's Medication Instructions Recorded amLODIPine [Norvasc] 2.5 mg PO DAILY #7 tablet 05/05/17 Allergies/Adverse Reactions: Allergies Allergy/AdvReac Type Severity Reaction Status Date / Time No Known Allergies Allergy Verified 08/02/18 16:02 All systems ED: reviewed and negative except as stated. Constitutional: Denies: fever Cardiovascular: Denies: chest pain Respiratory: Denies: dyspnea Gastrointestinal: Denies: abdominal pain, nausea, vomiting Neurological: Denies: headache, weakness, numbness, paresthesias Past Medical History - Past Medical History Attestation: Yes The following information was validated with the patient. Source: patient Medical history: Reports: diabetes, hyperlipidemia, hypertension Surgical history: Reports: no surgical history Psychiatric history: Reports: no psych history - Social History Smoking Status: Current every day smoker Alcohol use: Reports: none Drug use: Reports: none Physical Exam - General Limitations: no limitations General appearance: alert, in no apparent distress - Head Head exam: atraumatic, normocephalic, normal inspection - Eye Eye exam: Present: normal appearance, PERRL, EOMI - ENT ENT exam: normal exam - Neck Neck exam: Present: normal inspection - Chest Chest inspection: Present: normal inspection, symmetric chest wall rise - Respiratory Respiratory exam: Present: normal lung sounds bilaterally - Cardiovascular Cardiovascular exam: Present: regular rate, normal rhythm, normal heart sounds - Abdominal Exam Abdominal exam: Present: soft, Non-Tender. Absent: tenderness, distention, rigidity - Extremities Exam Extremities exam: Present: normal inspection, full ROM - Expanded Upper Extremity Exam Shoulder exam: Present: normal inspection, full ROM Arm exam: Present: normal inspection, full ROM Elbow exam: Present: normal inspection, full ROM Forearm/Wrist exam: Present: normal inspection, full ROM Hand exam: Present: normal inspection, full ROM - Expanded Lower Extremity Exam Hip/Pelvis exam: Present: normal inspection, full ROM Upper leg exam: Present: normal inspection, full ROM Knee exam: Present: normal inspection, full ROM Lower leg exam: Present: normal inspection, full ROM Ankle exam: Present: normal inspection, full ROM Foot/toe exam: Present: normal inspection, full ROM Neurovascular/Tendon exam: Absent: motor deficit, sensory deficit - Neurological Exam Neurological exam: Present: alert, oriented X3, CN II-XII intact - Expanded Neurological Exam Patient oriented to: Present: person, place, time Speech: Present: fluid speech Cranial nerves: EOM function (II, III, IV, ): Normal, facial sensation (V): Normal, spinal accessory function (XI): Normal, tongue deviation (XII): Normal Cerebellar function: finger to nose: Normal, heel to [place]: Normal Motor strength - LUE: 5/5 Motor strength - RUE: 5/5 Motor strength - LLE: 5/5 Motor strength - RLE: 5/5 Sensory exam upper extremity: light touch: Normal Sensory exam lower extremity: light touch: Normal Coma Scale Eye Opening: Spontaneous Coma Scale Motor Response: Obeys Commands Coma Scale Verbal Response: Oriented Coma Scale Total: 15 - Skin Skin exam: Present: warm, dry Course Course Narrative: Patient seen and examined at time of arrival. Vital signs reviewed. Stroke alert called. Currently has an NIH of 0. Plan for CT imaging, labs. - Reevaluation(s) Reevaluation #1: Imaging discussed with family. Agreeable with CTA. If normal admission here for further evaluation. - Consultations Consultation #1: Patient evaluated by [facility] stroke neurology. They report the patient is not a candidate for TPA as his symptoms have nearly resolved and they are minimal. They do recommend an angiogram for further evaluation. Vital Signs Temperature 97.9 F 08/02/18 14:24 Pulse Rate 66 08/02/18 14:24 Respiratory Rate 18 08/02/18 14:24 Blood Pressure 147/68 08/02/18 14:24 O2 Sat by Pulse Oximetry 96 08/02/18 14:24 Temperature 97.9 F 08/02/18 14:26 Pulse Rate 83 08/02/18 16:42 Respiratory Rate 20 08/02/18 16:42 Blood Pressure 164/83 08/02/18 16:42 O2 Sat by Pulse Oximetry 96 08/02/18 16:42 Oxygen Delivery Oxygen Delivery Room Air Neuro Symptoms/Deficit - MDM Narrative Medical decision making narrative: 77-year-old male presents to the ER with a concern for stroke like symptoms. He is well-appearing here with an NIH of 0. He has no appreciable deficits on exam with possible left facial droop of unknown time frame. CT imaging of his head was grossly unremarkable. Case was discussed with neurology at [facility]. The patient was not indicated for TPA. Patient given aspirin while in the emergency department. He is admitted to the hospitalist service for CVA workup. - Lab Data Lab results reviewed: Yes I reviewed the patient's lab results. Result diagrams: 08/02/18 14:42 08/02/18 14:42 Lab Results 09/06/1208/02/18 08/02/18 Range/Units 14:42 14:42 14:42 WBC 9.6 (4.3-11.1) K/mcL RBC 4.33 (4.19-5.50) M/mcL Hgb 14.3 (12.9-16.9) g/dL Hct 41.5 (37.5-50.1) % MCV 95.8 (83.0-100.0) fL MCH 33.0 (28.0-33.3) pg MCHC 34.5 (31.6-35.5) g/dL RDW 12.5 (11.5-14.5) % Plt Count 259 (140-400) K/mcL MPV 9.5 (9.4-12.4) fL Immature Gran % 0.4 (0-4) % Seg Neutrophils % 68.2 % Lymphocytes % 22.0 % Monocytes % 7.1 % Eosinophils % 1.8 % Basophils % 0.5 % Neutrophils # 6.5 (1.6-8.9) K/mcL Lymphocytes # 2.1 (0.6-4.6) K/mcL Monocytes # 0.7 (0.0-1.3) K/mcL Eosinophils # 0.2 (0.0-0.6) K/mcL Basophils # 0.1 (0.0-0.2) K/mcL PT 12.1 (9.4-12.1) Seconds INR 1.1 APTT 30.4 (26.0-36.0) Seconds Sodium 137 (136-145) mEq/L Potassium 4.0 (3.5-5.1) mEq/L Chloride 104 (98-107) mEq/L Carbon Dioxide 26 (23-29) mEq/L BUN 27 H (8-23) mg/dL Creatinine 1.30 (0.70-1.30) mg/dL Est GFR ( Amer) > 60 (> 60) Est GFR (Non-Af Amer) 53 L (> 60) BUN/Creatinine Ratio 21 (6-26) Glucose 128 H (70-105) mg/dL Calculated Osmolality 291 (280-300) Calcium 9.3 (8.6-10.3) mg/dL Troponin I < 0.03 (< 0.04) ng/mL Urine Color (Yellow) Urine Clarity (Clear) Urine pH (5.0-8.0) pH Units Ur Specific [place] (1.010-1.025) Urine Protein (Neg-Trace) mg/dL Urine Glucose (UA) (Normal) mg/dL Urine Ketones (Negative) mg/dL Urine Blood (Negative) Urine Nitrite (Negative) Urine Bilirubin (Negative) Urine Urobilinogen (Normal) mg/dL Ur Leukocyte Esterase (Negative) Urine Opiates Screen (Kapdyn=069) ng/mL Ur Barbiturates Screen (Icdxgk=544) ng/mL Ur Phencyclidine Scrn (Cutoff=25) ng/mL Ur Amphetamines Screen (Hdnynk=8594) ng/mL U Benzodiazepines Scrn (Vmavmv=429) ng/mL Urine Cocaine Screen (Cutoff= 300) ng/mL U Marijuana (THC) Screen (Cutoff = 50) ng/mL Ur Drug Screen Interp 08/02/18 08/02/18 Range/Units 17:25 17:25 WBC (4.3-11.1) K/mcL RBC (4.19-5.50) M/mcL Hgb (12.9-16.9) g/dL Hct (37.5-50.1) % MCV (83.0-100.0) fL MCH (28.0-33.3) pg MCHC (31.6-35.5) g/dL RDW (11.5-14.5) % Plt Count (140-400) K/mcL MPV (9.4-12.4) fL Immature Gran % (0-4) % Seg Neutrophils % % Lymphocytes % % Monocytes % % Eosinophils % % Basophils % % Neutrophils # (1.6-8.9) K/mcL Lymphocytes # (0.6-4.6) K/mcL Monocytes # (0.0-1.3) K/mcL Eosinophils # (0.0-0.6) K/mcL Basophils # (0.0-0.2) K/mcL PT (9.4-12.1) Seconds INR APTT (26.0-36.0) Seconds Sodium (136-145) mEq/L Potassium (3.5-5.1) mEq/L Chloride (98-107) mEq/L Carbon Dioxide (23-29) mEq/L BUN (8-23) mg/dL Creatinine (0.70-1.30) mg/dL Est GFR ( Amer) (> 60) Est GFR (Non-Af Amer) (> 60) BUN/Creatinine Ratio (6-26) Glucose (70-105) mg/dL Calculated Osmolality (280-300) Calcium (8.6-10.3) mg/dL Troponin I (< 0.04) ng/mL Urine Color Yellow (Yellow) Urine Clarity Clear (Clear) Urine pH 7.0 (5.0-8.0) pH Units Ur Specific [place] 1.019 (1.010-1.025) Urine Protein Negative (Neg-Trace) mg/dL Urine Glucose (UA) Normal (Normal) mg/dL Urine Ketones Negative (Negative) mg/dL Urine Blood Negative (Negative) Urine Nitrite Negative (Negative) Urine Bilirubin Negative (Negative) Urine Urobilinogen Normal (Normal) mg/dL Ur Leukocyte Esterase Negative (Negative) Urine Opiates Screen Negative (Ecazdo=984) ng/mL Ur Barbiturates Screen Negative (Blnjof=246) ng/mL Ur Phencyclidine Scrn Negative (Cutoff=25) ng/mL Ur Amphetamines Screen Negative (Jemqwe=8243) ng/mL U Benzodiazepines Scrn Negative (Ejmmhp=513) ng/mL Urine Cocaine Screen Negative (Cutoff= 300) ng/mL U Marijuana (THC) Screen Negative (Cutoff = 50) ng/mL Ur Drug Screen Interp See Below - Radiology Data Radiology results reviewed: Yes I reviewed the patient's radiology results. Head CT 08/02/18 14:35 IMPRESSION: No acute intracranial abnormality. Dr. Young was notified 08/02/2018 at 2:55 p.m. D/ / Iliana Donahue MD / Iliana Donahue MD Interpreting Provider: Iliana Donahue MD Head CTA 08/02/18 15:28 IMPRESSION: Unremarkable CTA of the head and neck. Less than 50% narrowing of the proximal internal carotid arteries. Normal vertebral arteries. No significant intracranial arterial abnormality. D/ / Sunny Robertson MD / Sunny Robertson MD Interpreting Provider: Sunny Robertson MD Neck CTA 08/02/18 15:28 IMPRESSION: Unremarkable CTA of the head and neck. Less than 50% narrowing of the proximal internal carotid arteries. Normal vertebral arteries. No significant intracranial arterial abnormality. D/ / Sunny Robertson MD / Sunny Robertson MD Interpreting Provider: Sunny Robertson MD - EKG Data EKG attestation: Yes I reviewed and interpreted this EKG. EKG results narrative: EKG demonstrates sinus rhythm with a right bundle branch block with a rate of 76 bpm. Normal axis. Prolonged QRS ration of 143. Other intervals normal. T- wave inversions in the inferior leads unchanged from previous. No gross ST elevations or depressions. No acute ischemic findings. No significant changes from previous EKG dated 05/03/17. NIH Stroke Scale - Level of Consciousness LOC: Alert - LOC Questions LOC Questions: Answers both correctly - LOC Commands LOC Commands: Performs both correctly - Best Gaze Best Gaze: Normal - Visual Visual: No visual loss - Facial Palsy Facial Palsy: Normal - Motor Arms Motor Arm-Left: No drift for 10 seconds Motor Arm-Right: No drift for 10 seconds - Motor Legs Motor Leg-Left: No drift for 5 seconds Motor Leg-Right: No drift for 5 seconds - Limb Ataxia Limb Ataxia: Absent of affected limb too weak to perform exam - Sensory Sensory: Normal - Best Language Best Language: No aphasia - Dysarthria Dysarthria: Normal - Extinction and Inattention Extinction and Inattention: Normal - NIHSS Total Score NIHSS Total Score: 0 S.B.A.R. - S.B.A.R. Situation: Demographics, MOA Background: Presenting Complaint, Relevant PMH, Meds, & Allergies Assessment: Course and respsone to treatment, Exam Concerns, Patient/Family Expectation, Pertinant Lab Results Recommendation: Barrier(s) to disposition, Recommendation based on pending studies, treatments, or consults S.B.A.R. Report Given to: Dr. Koby Nunn Repor Time: 16:58
--- NOTE | 2018-08-02 14:58 | Emergency Department Note ---
Disposition Clinical Impression: Facial droop, Slurred speech, Confusion Disposition: Admitted As Inpatient Condition: Good Referrals: Herrera,Linwood Che MD [Primary Care Provider] - Forms: ED Satisfaction Letter Neuro HPI - General Chief Complaint: ED Neuro Symptoms/Deficit Stated Complaint: "dizzy spell,slurred speech,weakness" Time Seen by Provider: 08/02/18 14:35 Source: patient, family Mode of arrival: private vehicle Limitations: no limitations Nursing Notes Reviewed: Yes Vital Signs Reviewed: Yes - History of Present Illness Location: speech, right face History of same: No Severity: mild Improves with: none Worsens with: none On Anticoagulants: No Treatments Prior to Arrival: none - Related Data Home Medications: Home Medications Medication Instructions Recorded Confirmed Simvastatin [Zocor] 20 mg PO HS 05/03/17 08/02/18 metFORMIN [Glucophage] 850 mg PO TIDWM 05/03/17 08/02/18 Cyanocobalamin (Vitamin B-12) 1,000 mcg PO DAILY 08/02/18 08/02/18 [Vitamin B12] Ferrous Sulfate 325 mg PO DAILY 08/02/18 08/02/18 Previous Rx's Medication Instructions Recorded amLODIPine [Norvasc] 2.5 mg PO DAILY #7 tablet 05/05/17 Allergies/Adverse Reactions: Allergies Allergy/AdvReac Type Severity Reaction Status Date / Time No Known Allergies Allergy Verified 08/02/18 16:02 Constitutional: Denies: fever Cardiovascular: Denies: chest pain Respiratory: Denies: dyspnea Gastrointestinal: Denies: abdominal pain, nausea, vomiting Neurological: Denies: headache, weakness, numbness, paresthesias Past Medical History - Past Medical History Medical history: Reports: diabetes, hyperlipidemia, hypertension Surgical history: Reports: no surgical history Psychiatric history: Reports: no psych history - Social History Smoking Status: Current every day smoker Alcohol use: Reports: none Drug use: Reports: none Physical Exam - General Limitations: no limitations General appearance: alert, in no apparent distress Course Vital Signs Temperature 97.9 F 08/02/18 14:24 Pulse Rate 66 08/02/18 14:24 Respiratory Rate 18 08/02/18 14:24 Blood Pressure 147/68 08/02/18 14:24 O2 Sat by Pulse Oximetry 96 08/02/18 14:24 Temperature 97.9 F 08/02/18 14:26 Pulse Rate 83 08/02/18 16:42 Respiratory Rate 20 08/02/18 16:42 Blood Pressure 164/83 08/02/18 16:42 O2 Sat by Pulse Oximetry 96 08/02/18 16:42 Oxygen Delivery Oxygen Delivery Room Air Neuro Symptoms/Deficit - Lab Data Result diagrams: 08/02/18 14:42 08/02/18 14:42 Lab Results 08/02/18 08/02/18 08/02/18 Range/Units 14:42 14:42 14:42 WBC 9.6 (4.3-11.1) K/mcL RBC 4.33 (4.19-5.50) M/mcL Hgb 14.3 (12.9-16.9) g/dL Hct 41.5 (37.5-50.1) % MCV 95.8 (83.0-100.0) fL MCH 33.0 (28.0-33.3) pg MCHC 34.5 (31.6-35.5) g/dL RDW 12.5 (11.5-14.5) % Plt Count 259 (140-400) K/mcL MPV 9.5 (9.4-12.4) fL Immature Gran % 0.4 (0-4) % Seg Neutrophils % 68.2 % Lymphocytes % 22.0 % Monocytes % 7.1 % Eosinophils % 1.8 % Basophils % 0.5 % Neutrophils # 6.5 (1.6-8.9) K/mcL Lymphocytes # 2.1 (0.6-4.6) K/mcL Monocytes # 0.7 (0.0-1.3) K/mcL Eosinophils # 0.2 (0.0-0.6) K/mcL Basophils # 0.1 (0.0-0.2) K/mcL PT 12.1 (9.4-12.1) Seconds INR 1.1 APTT 30.4 (26.0-36.0) Seconds Sodium 137 (136-145) mEq/L Potassium 4.0 (3.5-5.1) mEq/L Chloride 104 (98-107) mEq/L Carbon Dioxide 26 (23-29) mEq/L BUN 27 H (8-23) mg/dL Creatinine 1.30 (0.70-1.30) mg/dL Est GFR ( Amer) > 60 (> 60) Est GFR (Non-Af Amer) 53 L (> 60) BUN/Creatinine Ratio 21 (6-26) Glucose 128 H (70-105) mg/dL Calculated Osmolality 291 (280-300) Calcium 9.3 (8.6-10.3) mg/dL Troponin I < 0.03 (< 0.04) ng/mL Urine Color (Yellow) Urine Clarity (Clear) Urine pH (5.0-8.0) pH Units Ur Specific [place] (1.010-1.025) Urine Protein (Neg-Trace) mg/dL Urine Glucose (UA) (Normal) mg/dL Urine Ketones (Negative) mg/dL Urine Blood (Negative) Urine Nitrite (Negative) Urine Bilirubin (Negative) Urine Urobilinogen (Normal) mg/dL Ur Leukocyte Esterase (Negative) Ur Drug Screen Interp 08/02/18 08/02/18 Range/Units 17:25 17:25 WBC (4.3-11.1) K/mcL RBC (4.19-5.50) M/mcL Hgb (12.9-16.9) g/dL Hct (37.5-50.1) % MCV (83.0-100.0) fL MCH (28.0-33.3) pg MCHC (31.6-35.5) g/dL RDW (11.5-14.5) % Plt Count (140-400) K/mcL MPV (9.4-12.4) fL Immature Gran % (0-4) % Seg Neutrophils % % Lymphocytes % % Monocytes % % Eosinophils % % Basophils % % Neutrophils # (1.6-8.9) K/mcL Lymphocytes # (0.6-4.6) K/mcL Monocytes # (0.0-1.3) K/mcL Eosinophils # (0.0-0.6) K/mcL Basophils # (0.0-0.2) K/mcL PT (9.4-12.1) Seconds INR APTT (26.0-36.0) Seconds Sodium (136-145) mEq/L Potassium (3.5-5.1) mEq/L Chloride (98-107) mEq/L Carbon Dioxide (23-29) mEq/L BUN (8-23) mg/dL Creatinine (0.70-1.30) mg/dL Est GFR ( Amer) (> 60) Est GFR (Non-Af Amer) (> 60) BUN/Creatinine Ratio (6-26) Glucose (70-105) mg/dL Calculated Osmolality (280-300) Calcium (8.6-10.3) mg/dL Troponin I (< 0.04) ng/mL Urine Color Yellow (Yellow) Urine Clarity Clear (Clear) Urine pH 7.0 (5.0-8.0) pH Units Ur Specific [place] 1.019 (1.010-1.025) Urine Protein Negative (Neg-Trace) mg/dL Urine Glucose (UA) Normal (Normal) mg/dL Urine Ketones Negative (Negative) mg/dL Urine Blood Negative (Negative) Urine Nitrite Negative (Negative) Urine Bilirubin Negative (Negative) Urine Urobilinogen Normal (Normal) mg/dL Ur Leukocyte Esterase Negative (Negative) Ur Drug Screen Interp See Below TPA Checklist - LKW: 3-4.5 hrs Add. Warnings/Precautions Patient/family understanding: The patient/family members have been counseled and understood the risk, benefit , and alternatives of treatment. Attestation Statement - Attestation Attestation: I have discussed the case with the resident physician Dr. Young. I have personally performed a history, physical exam, and my own medical decision making. I have reviewed the note and agree with the finding and plan. Patient brought in by family for evaluation of change in mental status, slurred speech, right-sided facial droop. Onset was at 1:15 PM. Patient has significant improved since the time of presentation. Patient's face and shoulder deficit is noticed by family. He has some asymmetry but continues to have strength. I did discuss the futility of TPA given his rapidly improving symptoms as well as risks being greater than the benefits. Family however is concerned since he continues to have right-sided facial droop. They are familiar with the healthcare system and specialty consultation will be performed. Stroke alert called. More likely related to diabetes over exertion and other etiology. Further lab investigation will be performed. Fluids given. Please see resident physician note for further details and disposition. Upon my evaluation, this patient had a high probability of imminent or life- threatening deterioration due to acute neuro deficit and altered mentation, which required my direct attention, intervention, and personal management. I have personally provided 35 minutes of critical care time exclusive of time spent on separately billable procedures. Time includes review of laboratory data , radiology results, discussion with consultants, and monitoring for potential deterioration. Interventions were performed as documented above.
[2018-08-02] MEDS ORDERED: 0.9 % Sodium Chloride 1,000 ML IVC ONE (14:59)
[2018-08-02 15:04] LABS: Basophils # 0.1 K/mcL (0.0-0.2); Basophils % 0.5 %; Eosinophils # 0.2 K/mcL (0.0-0.6); Eosinophils % 1.8 %; Hematocrit 41.5 % (37.5-50.1); Hemoglobin 14.3 g/dL (12.9-16.9); Immature Granulocytes % 0.4 % (0-4); Lymphocytes # 2.1 K/mcL (0.6-4.6); Mean Corpuscular HGB Conc 34.5 g/dL (31.6-35.5); Mean Corpuscular Volume 95.8 fL (83.0-100.0); Mean Platelet Volume 9.5 fL (9.4-12.4); Monocytes # 0.7 K/mcL (0.0-1.3); Monocytes % 7.1 %; Neutrophils # 6.5 K/mcL (1.6-8.9); Platelet Count 259 K/mcL (140-400); Red Blood Count 4.33 M/mcL (4.19-5.50); Red Cell Distribution Width 12.5 % (11.5-14.5); Segmented Neutrophils % 68.2 %
[2018-08-02 15:16] LABS: INR 1.1; Prothrombin Time 12.1 Seconds (9.4-12.1)
[2018-08-02 15:18] LABS: Activated Partial Thrombo Time 30.4 Seconds (26.0-36.0)
[2018-08-02 15:25] LABS: Troponin I < 0.03 ng/mL (< 0.04)
[2018-08-02] MEDS ORDERED: Isovue-370 500 ML INFUS..BTL IV ONE (15:28)
[2018-08-02 15:30] LABS: BUN/Creatinine Ratio 21 (6-26); Blood Urea Nitrogen 27 mg/dL (8-23); Calcium 9.3 mg/dL (8.6-10.3); Carbon Dioxide 26 mEq/L (23-29); Chloride 104 mEq/L (98-107); Glucose 128 mg/dL (70-105); Osmolality,Calculated 291 (280-300); Sodium 137 mEq/L (136-145); eGFR For Non-African Americans 53 (> 60)
[2018-08-02] MEDS ORDERED: Aspirin 325 MG TABLET PO ONE (16:15)
[2018-08-02] MEDS ORDERED: Acetaminophen 325 MG TABLET PO PRN (17:11)
[2018-08-02] MEDS ORDERED: *HR* Dextrose 50 % in Water (Syg) 50 ML SYRINGE IVP PRN (17:21)
[2018-08-02] MEDS ORDERED: Dextrose Gel 15 GM/37.5 ML TUBE PO PRN ×2 (17:21)
[2018-08-02] MEDS ORDERED: D5% in Water 1,000 ML IVC PRN (17:21)
[2018-08-02 17:37] LABS: Bilirubin,Urine Negative (Negative); Blood,Urine Negative (Negative); Clarity,Urine Clear (Clear); Color,Urine Yellow (Yellow); Glucose,Urine (UA) Normal (Normal); Ketones,Urine Negative (Negative); Leukocyte Esterase,Urine Negative (Negative); Nitrite,Urine Negative (Negative); Protein,Urine Negative (Neg-Trace); Specific Gravity,Urine 1.019 (1.010-1.025); Urobilinogen,Urine Normal (Normal)
--- NOTE | 2018-08-02 17:37 | Internal Med History&Physical ---
Date of Encounter: 08/02/18 Time of Encounter: 17:37 Internal Medicine - H&P: HPI Chief complaint: slurred speech and facial droop Admitted From: Home Plans for Post Hospital Care: Home History of present illness: Mr. Simons is a 77 year old male with history of DM2, HTN adn HLD presented to the ED with complaint of slurred speech and dizziness. as per patient his symptoms started at 1:15 pm o the day of admission. 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 he was outside for approx 4 hours. he went inside and had a cold gatorade as he was thirsty adn had to sit down because he felt dizzy. his son in law saw him sitting down adn he noticed that the patient had a right sided facial droop adn was slurring his speech. the patient bames cold gatorade for his symptoms. son in law was going to call the EMS but patient reported that he did not want to go to the hospital. he went home adn his grand daughter who is a nurse at [employer] advised family to bring him to the ED. his symptoms improved/ resolved enroute to the ED. he cannot recall aggravating adn alleviating sx. he reports compliance with his medications. he has had multiple episodes of dizziness and syncope and was diagnosed with orthostatic hypotension and his BP medications were changed. while in the ED stroke alert was called and CT head performed which showed no acute abnormalities. [facility] was called who recommended no TPA. CTA head and neck performed in the ED which was unremarkable. he was endorsed for further evaluation and admission. currently he is complaining the the left angle of his mouth feel "fat". denies loss of function, tingling, paresthesia he denies fever, chills, dysuria, similar episodes, chest pain, palpitations, irregular heart beat, heat or cold intolerance, SOB, cough, N/V/D, LOC, head trauma, syncope he currently takes ASA 81 mg qday at home. he is independent with all his ADLs. Past Med Surg Social Fam HX - Past Medical History Medical history: diabetes, hyperlipidemia, hypertension Psychiatric history: no psych history - Past Surgical History Surgical History: no surgical history - Social History Smoking Status: Current every day smoker Alcohol use: none Drug use: none - Family History Father Family Member Ethnicity: Non- Living Status: Hx Family Cardiac Disorders: Yes ([place], Stroke) Mother Family Member Ethnicity: Non- Living Status: Hx Family Cancer: Yes (Leukemia) Brother Family Member Ethnicity: Non- Living Status: Still Living Hx Family Cardiac Disorders: Yes (HD) Internal Medicine - H&P: Meds Simvastatin [Zocor] 20 mg PO HS 05/03/17 [History] metFORMIN [Glucophage] 850 mg PO TIDWM 05/03/17 [History] amLODIPine [Norvasc] 2.5 mg PO DAILY #7 tablet 05/05/17 [Rx] Cyanocobalamin (Vitamin B-12) [Vitamin B12] 1,000 mcg PO DAILY 08/02/18 [History ] Ferrous Sulfate 325 mg PO DAILY 08/02/18 [History] 3 Allergy/AdvReac Type Severity Reaction Status Date / Time No Known Allergies Allergy Verified 08/02/18 16:02 All Systems PM: review of systems was performed and is negative for pertinent findings except as documented above in the HPI. - Constitutional Vitals: Temp Pulse Resp BP Pulse Ox 97.9 F 83 20 164/83 96 08/02/18 14:26 08/02/18 16:42 08/02/18 16:42 08/02/18 16:42 08/02/18 16:42 Exam: General: Patient is alert, oriented, no acute distress, overweight Head: atraumatic, normocephalic, Eye: normal appearance, PERRL, no scleral icterus, no conjunctival injection ENT: mucous membranes moist, normal external ear exam Neck: normal inspection, trachea midline, full ROM, no carotid bruits Chest: normal inspection, symmetric chest rise Respiratory: Good respiratory effort. Bilateral breath sounds are clear without wheezing, crackles, or rhonchi. Cardiovascular: Regular rate and rhythm. s1 and s2 No clicks, rubs, gallops, or murmors. Abdomen: Bowel sounds present normoactive x-4 quadrants. Abdomen is soft, nondistended. no Epigastric tenderness. No guarding or rebound. No organomegaly noted musculoskeletal: Spontaneously moving all extremities. no edema, no calf tenderness Skin: warm, dry, intact. Neuro: Alert and oriented x4. Sensation light touch intact. Cranial nerves 2- 12 is intact. tongue is midline, speech is clear and comprehendible, strength is 5/5 in all extremities, rapid hand movements intact, [id number] intact, Psych: Patient's affect is normal Internal Med - H&P Results - Labs CBC & Chem 7: 08/02/18 14:42 08/02/18 14:42 Labs: Short CBC 08/02/18 Range/Units 14:42 WBC 9.6 (4.3-11.1) K/mcL Hgb 14.3 (12.9-16.9) g/dL Hct 41.5 (37.5-50.1) % Plt Count 259 (140-400) K/mcL Neutrophils # 6.5 (1.6-8.9) K/mcL BMP 08/02/18 14:42 Sodium 137 Potassium 4.0 Chloride 104 Carbon Dioxide 26 BUN 27 H Creatinine 1.30 Glucose 128 H Calcium 9.3 Cardiac Enzymes 08/02/18 Range/Units 14:42 Troponin I < 0.03 (< 0.04) ng/mL - EKG Data EKG comments: 08/02/18 17:42 pending - Impressions ITS Impressions Head CT 08/02/18 14:35 IMPRESSION: No acute intracranial abnormality. Dr. Young was notified 08/02/2018 at 2:55 p.m. D/ / Iliana Donahue MD / Iliana Donahue MD Interpreting Provider: Iliana Donahue MD Head CTA 08/02/18 15:28 IMPRESSION: Unremarkable CTA of the head and neck. Less than 50% narrowing of the proximal internal carotid arteries. Normal vertebral arteries. No significant intracranial arterial abnormality. D/ / Sunny Robertson MD / Sunny Robertson MD Interpreting Provider: Sunny Robertson MD Neck CTA 08/02/18 15:28 IMPRESSION: Unremarkable CTA of the head and neck. Less than 50% narrowing of the proximal internal carotid arteries. Normal vertebral arteries. No significant intracranial arterial abnormality. D/ / Sunny Robertson MD / Sunny Robertson MD Interpreting Provider: Sunny Robertson MD - Assessment and plan (1) Facial droop Current Visit: Yes Status: Acute Assessment and plan: right sided facial droop and slurred speech most likely secondary to TIA stroke alert was called on 08/02/18 and No TPA as per [place] state symptoms resolved CT head, CTA head and neck are unremrkable received ASA 325 mg in the ED will continue with ASA 81 mg daily lipitor 80 mg daily TTE with bubble study TSH, lipid panel, A1c in the AM along with AM labs cardiac monitoring neuro checks as per protocol rehab/PT evaluation INSTRUCTIONAL SYSTEMS SPECIALIST evaluation SW consult maintain LDLs <75 keep systolic BP <220 ad diastolic BP <120 DVT prophylaxis with heparin and SCDs fall, seizure, aspiration precautions IVF with NS diabetic diet UA Utox alcohol level Magnesium, Po4 (2) Diabetes Current Visit: No Status: Chronic Assessment and plan: history of DM2 on metformin at home - hold oral hypoglycemic agents finger sticks Q6H low dose sliding scale A1c in the AM Qualifiers: Diabetes mellitus type: type 2 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 insulin use: without usp use Diabetes mellitus complication status: without complication Qualified Code(s): E11.9 - Type 2 diabetes mellitus without complications (3) Hyperlipidemia Current Visit: No Status: Chronic Assessment and plan: lipid panel in the AM lipitor 80 mg QHS Qualifiers: Hyperlipidemia type: unspecified Qualified Code(s): E78.5 - Hyperlipidemia , unspecified (4) Hypertension Current Visit: No Status: Chronic Assessment and plan: keep systolic BP <220 ad diastolic BP <120 hold amlodipine for now will consider ACEI in the Am since patient is diabetic Qualifiers: Hypertension type: essential hypertension Qualified Code(s): I10 - Essential (primary) hypertension (5) Syncope due to orthostatic hypotension Current Visit: No Status: Acute Assessment and plan: was diagnosed with orthostatic hypotension and syncope secondary to it hold all BP meds for now (6) DVT prophylaxis Current Visit: No Status: Acute Assessment and plan: heparin Sc and SCDs - Time Spent With Patient Total time spent is greater than 50% in coordination of care (as documented) at patient's floor/unit and/or counseling patient:
[2018-08-02 17:47] LABS: Amphetamine Screen,Urine Negative ng/mL (Cutoff=1000); Barbiturate Screen,Urine Negative ng/mL (Cutoff=200); Benzodiazepines Screen,Urine Negative ng/mL (Cutoff=200); Cannabinoid Screen,Urine Negative ng/mL (Cutoff = 50); Cocaine Screen,Urine Negative ng/mL (Cutoff= 300); Opiate Screen,Urine Negative ng/mL (Cutoff=300); Phencyclidine Screen,Urine Negative ng/mL (Cutoff=25)
[2018-08-02 18:03] LABS: Magnesium 1.9 mg/dL (1.6-2.6); Phosphorous 3.8 mg/dL (2.7-4.5)
[2018-08-02] MEDS: *HR* Heparin 5,000 UNIT/ML VIAL SQ SCH (20:10)
[2018-08-02] MEDS: 0.9 % Sodium Chloride 1,000 ML IVC SCH (20:10)
[2018-08-02] MEDS: Insulin LISPRO 300 UNITS/3 ML VIAL SQ SCH (20:28)
[2018-08-02 20:39] LABS: Ethanol < 10 mg/dL (Less than 10)
[2018-08-03] MEDS: Insulin LISPRO 300 UNITS/3 ML VIAL SQ SCH ×4 (01:51→17:39)
[2018-08-03 04:41] LABS: Basophils % 0.6 %; Eosinophils # 0.3 K/mcL (0.0-0.6); Eosinophils % 3.8 %; Hematocrit 42.7 % (37.5-50.1); Hemoglobin 14.5 g/dL (12.9-16.9); Immature Granulocytes % 0.4 % (0-4); Mean Corpuscular Hemoglobin 32.9 pg (28.0-33.3); Mean Corpuscular Volume 96.8 fL (83.0-100.0); Mean Platelet Volume 10.1 fL (9.4-12.4); Monocytes # 0.6 K/mcL (0.0-1.3); Monocytes % 8.6 %; Neutrophils # 3.8 K/mcL (1.6-8.9); Platelet Count 247 K/mcL (140-400); Red Blood Count 4.41 M/mcL (4.19-5.50); Red Cell Distribution Width 12.7 % (11.5-14.5); Segmented Neutrophils % 56.6 %
[2018-08-03 04:44] LABS: INR 1.1; Prothrombin Time 12.4 Seconds (9.4-12.1)
[2018-08-03 04:47] LABS: Activated Partial Thrombo Time 30.4 Seconds (26.0-36.0)
[2018-08-03 04:57] LABS: Alanine Aminotransferase 7 Units/L (7-52); Albumin 3.9 g/dL (3.5-5.7); Albumin/Globulin Ratio 1.6 (1.1-2.2); Alkaline Phosphatase 47 Units/L (34-104); Aspartate Amino Transferase 9 Units/L (13-39); BUN/Creatinine Ratio 21 (6-26); Bilirubin,Total 0.5 mg/dL (0.3-1.0); Blood Urea Nitrogen 27 mg/dL (8-23); Calcium 9.1 mg/dL (8.6-10.3); Carbon Dioxide 27 mEq/L (23-29); Chloride 107 mEq/L (98-107); Chol/HDL Ratio 5.3 (0-4.9); Cholesterol 189 mg/dL (< 200); Globulin 2.4 g/dL (2.4-3.5); Glucose 122 mg/dL (70-105); HDL Cholesterol 36 mg/dL (40-59); LDL Cholesterol,Calculated 125 mg/dL (0-99); Osmolality,Calculated 298 (280-300); Sodium 141 mEq/L (136-145); Total Protein 6.3 g/dL (6.4-8.9); Triglycerides 140 mg/dL (< 150); eGFR For Non-African Americans 54 (> 60)
[2018-08-03] MEDS: *HR* Heparin 5,000 UNIT/ML VIAL SQ SCH ×3 (05:50→21:23)
[2018-08-03 08:39] LABS: Estimated Average Glucose 128 mg/dl; Hemoglobin A1C 6.1 %
[2018-08-03] MEDS ORDERED: Aspirin Enteric Coated 81 MG Tablet PO SCH (09:00)
[2018-08-03] MEDS: Cyanocobalamin (B-12) 1,000 MCG TABLET PO SCH (09:44)
--- NOTE | 2018-08-03 11:15 | Electrophysiology Consult Note ---
Date of Encounter: 08/03/18 Time of Encounter: 11:12 Assessment and Plan Discussion w patient/family: The assessment and plan as outlined above was discussed with the patient and/or family members who expressed understanding and agreement. All questions were answered. Thank you for involving us in the care of your patient. Please call with any questions. Symptoms suggestive of TIA. Would recommend LOOP recorder implant prior to d/c to rule out AF. History of Present Illness Consult date: 08/03/18 Requesting physician: Otilio Whalen Consult reason: TIA Chief complaint: Dizziness History of present illness: Mr. Simons is a 77 year old male presents with symptoms suggestive of CVA that resolved in ER. Past Med Surg Social Fam HX - Past Medical History Medical history: diabetes, hyperlipidemia, hypertension Psychiatric history: no psych history - Past Surgical History Surgical History: no surgical history - Social History Smoking Status: Current every day smoker Packs per day: 1 pack Smokeless Tobacco Status: No Alcohol use: none Drug use: none - Family History Father Family Member Ethnicity: Non- Living Status: Hx Family Cardiac Disorders: Yes ([place], Stroke) Mother Family Member Ethnicity: Non- Living Status: Hx Family Cancer: Yes (Leukemia) Brother Family Member Ethnicity: Non- Living Status: Still Living Hx Family Cardiac Disorders: Yes (HD) Medications and Allergies Simvastatin [Zocor] 20 mg PO HS 05/03/17 [History] metFORMIN [Glucophage] 850 mg PO TIDWM 05/03/17 [History] amLODIPine [Norvasc] 2.5 mg PO DAILY #7 tablet 05/05/17 [Rx] Cyanocobalamin (Vitamin B-12) [Vitamin B12] 1,000 mcg PO DAILY 08/02/18 [History ] Ferrous Sulfate 325 mg PO DAILY 08/02/18 [History] 3 Allergy/AdvReac Type Severity Reaction Status Date / Time No Known Allergies Allergy Verified 08/02/18 16:02 All Systems Review: The remainder of the systems were reviewed and are negative Physical Examination Vital Signs, Last 4 Hours Temp Pulse Resp BP Pulse Ox 08/03/18 07:31 98.1 F 55 16 168/73 95 General: Conversant, No Apparent Distress HEENT: Atraumatic, Normocephaly, Mucus Membranes Moist Neck: No JVD, Normal carotid pulses Cardiac: Reg Rate and Rhythm, Normal S1 and S2, No Murmur Lungs: Normal Breath Sounds, No Wheeze, Rales, Rhonchi Neuro: Alert and responsive, No focal deficits noted Abdomen: Soft, Non-Tender Skin: No rashes noted on visualized skin Musculoskeletal: No Chest Wall Tenderness Extremities: No Clubbing, No Cyanosis, No Edema, Normal Pulses Results 08/03/18 02:29 08/03/18 02:29 Lab Results 08/03/18 08/03/18 08/03/18 02:29 02:29 02:29 WBC 6.8 Hgb 14.5 Hct 42.7 Plt Count 247 INR 1.1 APTT 30.4 Sodium 141 Potassium 4.0 Chloride 107 Carbon Dioxide 27 BUN 27 H Creatinine 1.28 Glucose 122 H Calcium 9.1 Total Bilirubin 0.5 AST 9 L ALT 7 Alkaline Phosphatase 47 TSH 08/03/18 02:29 WBC Hgb Hct Plt Count INR APTT Sodium Potassium Chloride Carbon Dioxide BUN Creatinine Glucose Calcium Total Bilirubin AST ALT Alkaline Phosphatase TSH 2.074 Consult Discharge Plan - Plan Referrals: Linwood Silverman MD [Primary Care Provider] -
--- NOTE | 2018-08-03 12:33 | Internal Med Progress Note ---
Hospitalist Progress Note - Encounter Date of Encounter: 08/03/18 Time of Encounter: 12:30 - Subjective Interval History: he report sthat he is doing fine, no deficit, all symptoms have resolved denies vision loss, syncope, fall, LOC, fever, chills, N/V/D, chest pain, palpitations, loss of function of extremities. - Exam Vitals: Temp Pulse Resp BP Pulse Ox 98.1 F 55 16 168/73 95 08/03/18 07:31 08/03/18 07:31 08/03/18 07:31 08/03/18 07:31 08/03/18 07:31 Exam: General: Patient is alert, oriented, no acute distress, overweight Head: atraumatic, normocephalic, Eye: normal appearance, PERRL, no scleral icterus, no conjunctival injection ENT: mucous membranes moist, normal external ear exam Neck: normal inspection, trachea midline, full ROM, no carotid bruits Chest: normal inspection, symmetric chest rise Respiratory: Good respiratory effort. Bilateral breath sounds are clear without wheezing, crackles, or rhonchi. Cardiovascular: Regular rate and rhythm. s1 and s2 No clicks, rubs, gallops, or murmors. Abdomen: Bowel sounds present normoactive x-4 quadrants. Abdomen is soft, nondistended. no Epigastric tenderness. No guarding or rebound. No organomegaly noted musculoskeletal: Spontaneously moving all extremities. no edema, no calf tenderness Skin: warm, dry, intact. Neuro: Alert and oriented x4. Sensation light touch intact. Cranial nerves 2- 12 is intact. tongue is midline, speech is clear and comprehendible, strength is 5/5 in all extremities, rapid hand movements intact, [id number] intact, Psych: Patient's affect is normal - Assessment and Plan (1) Facial droop Current Visit: Yes Status: Acute Assessment and Plan: right sided facial droop and slurred speech most likely secondary to TIA stroke alert was called on 08/02/18 and No TPA as per [place] state symptoms resolved CT head, CTA head and neck are unremrkable received ASA 325 mg in the ED will continue with ASA 81 mg daily lipitor 80 mg daily TTE with bubble study - pending A1c 6.1 TSH WNL cardiac monitoring neuro checks as per protocol rehab/PT evaluation SW consult maintain LDLs <75 keep systolic BP <220 ad diastolic BP <120 DVT prophylaxis with heparin sc and SCDs fall, seizure, aspiration precautions diabetic diet cardiology consulted - for loop recorder prior to DC CT head IMPRESSION: No acute intracranial abnormality CTA head and neck Unremarkable CTA of the head and neck. Less than 50% narrowing of the proximal internal carotid arteries. Normal vertebral arteries. No significant intracranial arterial abnormality. MRI IMPRESSION: No acute infarct, intracranial hemorrhage, or significant mass effect. Chronic small vessel ischemic white matter disease and diffuse cerebral volume loss. Unchanged susceptibility signal within bilateral midbrain. This is likely secondary to mineral deposition. (2) Diabetes Current Visit: No Status: Chronic Assessment and Plan: history of DM2 on metformin at home - hold oral hypoglycemic agents finger sticks Q6H low dose sliding scale A1c 6.1 (3) Hyperlipidemia Current Visit: No Status: Chronic Assessment and Plan: lipid panel noted lipitor 80 mg QHS (4) Hypertension Current Visit: No Status: Chronic Assessment and Plan: keep systolic BP <220 ad diastolic BP <120 will continue home dose amlodipine he reports his lisinopril was discontinued due to dizziness and orthostatic hypotension (5) Syncope due to orthostatic hypotension Current Visit: No Status: Acute Assessment and Plan: was diagnosed with orthostatic hypotension and syncope secondary to it will resume home dose Amlodipine (6) DVT prophylaxis Current Visit: No Status: Acute Assessment and Plan: heparin Sc and SCDs - Time Spent with Patient Total time spent is greater than 50% in coordination of care (as documented) at patient's floor/unit and/or counseling patient: Internal Medicine: Result - Labs CBC & Chem 7: 08/03/18 02:29 08/03/18 02:29 Labs: Short CBC 08/03/18 Range/Units 02:29 WBC 6.8 (4.3-11.1) K/mcL Hgb 14.5 (12.9-16.9) g/dL Hct 42.7 (37.5-50.1) % Plt Count 247 (140-400) K/mcL Neutrophils # 3.8 (1.6-8.9) K/mcL BMP 08/03/18 02:29 Sodium 141 Potassium 4.0 Chloride 107 Carbon Dioxide 27 BUN 27 H Creatinine 1.28 Glucose 122 H Calcium 9.1 Liver Function 08/03/18 Range/Units 02:29 Total Bilirubin 0.5 (0.3-1.0) mg/dL AST 9 L (13-39) Units/L ALT 7 (7-52) Units/L Alkaline Phosphatase 47 (34-104) Units/L Albumin 3.9 (3.5-5.7) g/dL - ABG Interpretation ABG results: PT/INR, D-dimer PT 12.4 Seconds (9.4-12.1) H 08/03/18 02:29 - Impressions Impressions Brain MRI 08/03/18 09:34 IMPRESSION: No acute infarct, intracranial hemorrhage, or significant mass effect. Chronic small vessel ischemic white matter disease and diffuse cerebral volume loss. Unchanged susceptibility signal within bilateral midbrain. This is likely secondary to mineral deposition. 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
[2018-08-03] MEDS: 0.9 % Sodium Chloride 1,000 ML IVC SCH (12:40)
[2018-08-03] MEDS: amLODIPine 5 MG TABLET PO SCH (13:20)
--- NOTE | 2018-08-03 14:19 | Neurology - Consult Note ---
Date of Encounter: 08/03/18 Time of Encounter: 14:16 Assessment and Plan (1) TIA (transient ischemic attack) Current Visit: Yes Status: Acute Patient has a multiple risk factors for stroke symptoms has been resolved now at this time I would recommend For secondary stroke prevention patient should continue daily antiplatelet medication and vascular risk factor modification. Order the following test, *MRI of the brain without contrast., Completely did not show any acute abnormality *Antiplatelet medication, aspirin 81 mg daily. At Plavix 75 mg daily, discontinue aspirin at the time of discharge *Consult physical therapy/ rehabilitation, do not think that he would require any long-term rehabilitation as he did not have any focal motor deficit * To reduce the risk of future ischemic stroke patient need continued vascular risk modification, following's are the recommended guidelines LDL goal less than 70 MG per deciliter Smoking cessation reinforced. Diabetes management Blood pressure control should achieve less than 130/80 mmHg BP management should aim to achieve long-term control in a reasonable amount of time. weight management goal for BMI is 18.5 -24.9 Kg/m2 Alcohol : No more than 2 drinks per day for men Patient to continue to follow-up with his primary care physician for continued outpatient risk factor management and modification. If echocardiogram is negative patient is did okay to discharge from neurology standpoint with follow-up in neurology clinic in 3-4 weeks (2) Syncope due to orthostatic hypotension Current Visit: No Status: Acute History of Present Illness HPI: Mr. Simons is a 77 year old male with history of DM2, HTN adn HLD presented to the ED with complaint of slurred speech and dizziness. per patient his symptoms started at 1:15 pm o the day of admission. The patient himself denies much other symptoms except dizziness but his son noted that his speech is slurred and also noted to have a right facial droop . Later on he was brought into the hospital symptoms improved/ resolved enroute to the ED. Patient has not history of multiple episodes of dizziness and syncope and was diagnosed with orthostatic hypotension. in the ED stroke alert was called in [facility] telestroke did not recommended TPA as her symptoms were improved, CT of the head, CTA head and neck performed in the ED which was unremarkable. he denies fever, chills, dysuria, similar episodes, chest pain, palpitations, irregular heart beat, heat or cold intolerance, SOB, cough, N/V/D, LOC, head trauma, syncope, he takes ASA 81 mg qday at home. Past Med Surg Social Fam HX - Past Medical History Medical history: diabetes, hyperlipidemia, hypertension Psychiatric history: no psych history - Past Surgical History Surgical History: no surgical history - Social History Smoking Status: Current every day smoker Packs per day: 1 pack Smokeless Tobacco Status: No Alcohol use: none Drug use: none - Family History Father Family Member Ethnicity: Non- Living Status: Hx Family Cardiac Disorders: Yes ([place], Stroke) Mother Family Member Ethnicity: Non- Living Status: Hx Family Cancer: Yes (Leukemia) Brother Family Member Ethnicity: Non- Living Status: Still Living Hx Family Cardiac Disorders: Yes (HD) Medications and Allergies Simvastatin [Zocor] 20 mg PO HS 05/03/17 [History] metFORMIN [Glucophage] 850 mg PO TIDWM 05/03/17 [History] amLODIPine [Norvasc] 2.5 mg PO DAILY #7 tablet 05/05/17 [Rx] Cyanocobalamin (Vitamin B-12) [Vitamin B12] 1,000 mcg PO DAILY 08/02/18 [History ] Ferrous Sulfate 325 mg PO DAILY 08/02/18 [History] 3 Allergy/AdvReac Type Severity Reaction Status Date / Time No Known Allergies Allergy Verified 08/02/18 16:02 All Systems: The remainder of the systems were reviewed and are negative Physical Examination - Vital Signs Vital Signs: Initial Vital Signs Temp Pulse Resp BP Pulse Ox 97.9 F 66 18 147/68 96 08/02/18 14:24 08/02/18 14:24 08/02/18 14:24 08/02/18 14:24 08/02/18 14:24 - Exam Exam: GENERAL: Comfortable in no acute distress HEENT: Normal LUNGS: CTA HEART: RRR, S1 S2 Audible, no murmur EXTREMITIES: No Pedal edema. DETAILED NEUROLOGICAL EXAMINATION: MENTAL STATUS: Oriented to person, place, date and situation. Memory: knows the President, Aware of recent events Recent Memory Intact Cranial Nerve Examination: CN - II: Visual Acuity, Field of Vision Normal, Fundus examination: No disk edema, Pupils- size shape reaction to light and accommodation: All normal. CN III, IV, : External ocular movements were intact, Pupils were reactive, Nodrooping of the eyelids CN V: Sensation over the face to light touch and pinprick all normal. Corneal reflexes not tested, jaw jerk normal. CN VII: No facial asymmetry, no flattening of nasolabial folds, no difficulty in closing the eyes, no loss of forehead wrinkles, no difficulty in eye-closure, frowning raising eyebrows. CNVIII: No significant hearing loss CN IX, X: Uvula centralized not deviated, Gag reflex: Not tested CN X1: Sternocleidomastoid, trapezius, normal or evidence of any weakness. CN X11: No Dysarthria, no wasting or fibrilation f tongue muscles, no deviation, tongue muscle strength normal. Motor examination: No hypertrophy, tone was normal, power grade 0-5 Upper limbs Proximal- No difficulty in lifting the arms above the head. Distal- No weakness in distal muscles On formal testing 5/5 all over Lower limbs On formal testing 5/5 all over Coordination: [id number] normal. Target pursuit normal finger tapping normal, Rapid alternating moment of wrist normal Sensory system: Superficial sensations- Touch normal. Pain- Pinprick, Temperature all normal, Deep sensation normal, Joint position sense normal. Cortical sensation, Tactile discrimination, localization and extinction all normal. Deep tendon reflexes. Symmetrical bilateral, No evidence of Babinski. No sign of meningeal irritation Gait Examination: Deferred - Constitutional General appearance: comfortable Results - Laboratory Findings CBC and BMP: 08/03/18 02:29 08/03/18 02:29 Abnormal lab findings: Abnormal lab results PT 12.4 Seconds (9.4-12.1) H 08/03/18 02:29 BUN 27 mg/dL (8-23) H 08/03/18 02:29 Est GFR (Non-Af Amer) 54 (> 60) L 08/03/18 02:29 Glucose 122 mg/dL (70-105) H 08/03/18 02:29 POC Glucose 133 mg/dL (70-99) H 08/03/18 00:02 Hemoglobin A1c 6.1 % (-5.6) H 08/03/18 02:29 AST 9 Units/L (13-39) L 08/03/18 02:29 Serum Total Protein 6.3 g/dL (6.4-8.9) L 09/08/18 02:29 LDL Cholesterol, Calc 125 mg/dL (0-99) H 08/03/18 02:29 HDL Cholesterol 36 mg/dL (40-59) L 08/03/18 02:29 Cholesterol/HDL Ratio 5.3 (0-4.9) H 08/03/18 02:29 - Diagnostic Findings Additional findings: MRI of the brain reported as negative CT angiogram of the head was negative CTA of the neck shows less than 50% stenosis of the carotid Echo is pending Consult Discharge Plan - Plan Referrals: Linwood Silverman MD [Primary Care Provider] -
[2018-08-04] MEDS: Insulin LISPRO 300 UNITS/3 ML VIAL SQ SCH ×2 (00:10→06:12)
[2018-08-04] MEDS: *HR* Heparin 5,000 UNIT/ML VIAL SQ SCH (05:52)
[2018-08-04 07:05] VITALS: BP 162/75
[2018-08-04] MEDS: amLODIPine 5 MG TABLET PO SCH (09:08)
[2018-08-04] MEDS: Cyanocobalamin (B-12) 1,000 MCG TABLET PO SCH (09:08)
--- NOTE | 2018-08-04 10:01 | Discharge Summary ---
- NOTES TO OUTPATIENT PROVIDER Notes to Outpatient Provider: mattie guaman with neurology in 3-4 weeks. follow up with cardiology for loop recorder placement. follow lipid panels in 3 months. follow A1c in 3 months A1c 6.1. follow BP with BP log and take to primary care for adjusment of your BP medications Date of Encounter: 08/04/18 Time of Encounter: 09:59 - Discharge Diagnosis (1) TIA (transient ischemic attack) Priority: Primary Status: Acute (2) Facial droop Priority: Secondary Status: Resolved (3) Diabetes Priority: Secondary Status: Chronic Qualifiers: Diabetes mellitus type: type 2 Diabetes mellitus director long term care insulin use: without director long term care use Diabetes mellitus complication status: without complication Qualified Code(s): E11.9 - Type 2 diabetes mellitus without complications (4) Hyperlipidemia Priority: Secondary Status: Chronic Qualifiers: Hyperlipidemia type: unspecified Qualified Code(s): E78.5 - Hyperlipidemia , unspecified (5) Hypertension Priority: Secondary Status: Chronic Qualifiers: Hypertension type: essential hypertension Qualified Code(s): I10 - Essential (primary) hypertension (6) Syncope due to orthostatic hypotension Priority: Secondary Status: Acute (7) DVT prophylaxis Priority: Secondary Status: Acute (8) Current every day smoker Priority: Secondary Status: Acute Hospital course: Mr. Simons is a 77 year old male with history of DM2, HTN adn HLD presented to the ED with complaint of slurred speech and dizziness. as per patient his symptoms started at 1:15 pm o the day of admission. 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 he was outside for approx 4 hours. he went inside and had a cold gatorade as he was thirsty adn had to sit down because he felt dizzy. his son in law saw him sitting down adn he noticed that the patient had a right sided facial droop adn was slurring his speech. the patient bames cold gatorade for his symptoms. son in law was going to call the EMS but patient reported that he did not want to go to the hospital. he went home adn his grand daughter who is a nurse at [employer] advised family to bring him to the ED. his symptoms improved/ resolved en-route to the ED. he cannot recall aggravating adn alleviating sx. he reports compliance with his medications. he has had multiple episodes of dizziness and syncope and was diagnosed with orthostatic hypotension and his BP medications were changed. while in the ED stroke alert was called and CT head performed which showed no acute abnormalities. [facility] was called who recommended no TPA. CTA head and neck performed in the ED which was unremarkable. he was endorsed for further evaluation and admission. he was given ASA 325 mg in the ED. neurology was consulted and he was started on plavix and was cleared for discharge. simvastatin was changed to lipitor. MRI head was performed and it did not show any acute changes. TTE with bubble study performed on 08/03/18 and it showed LVEF of 60%, normal right ventricular function, without evidence of PFO. he was placed on cardiac monitoring which showed sinus rhythm with frequent PAC. EKG on admission shower NSR, frequent PAC and RBBB. TSH was WNL, HBA1c was 6.1. ua and Utox was negative. he remained symptoms free and all symptoms that he had on admission were resolved. cardiology was consulted for frequent PACs and ? history of self reported arrhythmia and LOOP recorder implant was recommended to rule out Atrial fibrillation while in patient but as patient wanted to be discharged home I discussed with Dr. nelson who recommended for patient to follow up as out patient. he was told to follow up with PCP with BP log and have BP medications titrated He was told to follow up with PCP for management of prediabtetes ( needs eye exam, podiatry follow up, albumin:CR ) he is to follow up with Dr. nelson and his team for OP Loop recorder placement to rule out Atrial fibrillation and arrhythmia He was counseled on importance of diet and weight loss. To reduce the risk of future ischemic stroke patient need continued vascular risk modification, following's are the recommended guidelines LDL goal less than 70 MG per deciliter Smoking cessation reinforced, he was counseled extensively Diabetes management Blood pressure control should achieve less than 130/80 mmHg BP management should aim to achieve long-term control in a reasonable amount of time. weight management goal for BMI is 18.5 -24.9 Kg/m2 Alcohol : No more than 2 drinks per day for men Patient to continue to follow-up with his primary care physician for continued outpatient risk factor management and modification. CT head: IMPRESSION: No acute intracranial abnormality. CTA head and neck: IMPRESSION: Unremarkable CTA of the head and neck. Less than 50% narrowing of the proximal internal carotid arteries. Normal vertebral arteries. No significant intracranial arterial abnormality. MRI head: IMPRESSION: 1. No acute infarct, intracranial hemorrhage, or significant mass effect. 2. Chronic small vessel ischemic white matter disease and diffuse cerebral volume loss. 3. Unchanged susceptibility signal within bilateral midbrain. This is likely secondary to mineral deposition. TTE: full report scanned by nursing staff in chart Discharge discussed with: patient, home service consultant Time spent discussing smoking cessation with patient: more than 10 minutes - Time Spent with Patient Total time spent providing and/or coordinating discharge services: Less than 30 minutes - Discharge Medications Prescriptions: Atorvastatin [Lipitor] 80 mg PO HS #30 tablet Blood Pressure Test Kit [Blood Pressure Kit] 1 each MC DAILY #1 kit Clopidogrel [Plavix] 75 mg PO DAILY #30 tablet Home Medications: metFORMIN [Glucophage] 850 mg PO TIDWM 05/03/17 [History] amLODIPine [Norvasc] 2.5 mg PO DAILY #7 tablet 05/05/17 [Rx] Cyanocobalamin (Vitamin B-12) [Vitamin B12] 1,000 mcg PO DAILY 08/02/18 [History ] Ferrous Sulfate 325 mg PO DAILY 08/02/18 [History] Atorvastatin [Lipitor] 80 mg PO HS #30 tablet 08/04/18 [Rx] Blood Pressure Test Kit [Blood Pressure Kit] 1 each MC DAILY #1 kit 08/04/18 [Rx ] Clopidogrel [Plavix] 75 mg PO DAILY #30 tablet 08/04/18 [Rx] Allergies/Adverse Reactions: 3 Allergy/AdvReac Type Severity Reaction Status Date / Time No Known Allergies Allergy Verified 08/02/18 16:02 Date of admission: 08/02/18 18:26 Primary care physician: Linwood Silverman MD Consults: 08/03/18 09:33 Consult to Cardiology [CONS] Routine Comment: Consulting Provider: Cardiology Susanna Reason for Consult: multiple syncopal episodes, history of arrhythmia, presented with TIA Call Completed: No - Constitutional Vitals: Temp Pulse Resp BP Pulse Ox 98.2 F 52 16 162/75 94 08/04/18 07:04 08/04/18 07:04 08/04/18 07:04 08/04/18 07:04 08/04/18 07:04 Exam: General: Patient is alert, oriented, no acute distress, overweight Head: atraumatic, normocephalic, Eye: normal appearance, PERRL, no scleral icterus, no conjunctival injection ENT: mucous membranes moist, normal external ear exam Neck: normal inspection, trachea midline, full ROM, no carotid bruits Chest: normal inspection, symmetric chest rise Respiratory: Good respiratory effort. Bilateral breath sounds are clear without wheezing, crackles, or rhonchi. Cardiovascular: Regular rate and rhythm. s1 and s2 No clicks, rubs, gallops, or murmors. Abdomen: Bowel sounds present normoactive x-4 quadrants. Abdomen is soft, nondistended. no Epigastric tenderness. No guarding or rebound. No organomegaly noted musculoskeletal: Spontaneously moving all extremities. no edema, no calf tenderness Skin: warm, dry, intact. Neuro: Alert and oriented x4. Sensation light touch intact. Cranial nerves 2- 12 is intact. tongue is midline, speech is clear and comprehendible, strength is 5/5 in all extremities, rapid hand movements intact, [id number] intact, gait steady, no pronator drift , no facial droop Psych: Patient's affect is normal - Patient Status Disposition: Home, Self-Care Condition: Good Functional capacity at discharge: independent ambulation Overall status at discharge: patient is progressing back to baseline - Discharge Instructions Follow Up With: Linwood Silverman MD [Primary Care Provider] - Kitty Decker MD [Partnered Physician] - Arian Nelson MD [Partnered Physician] - - Diet and Activity Activity: increase activity as tolerated Diet: diabetic diet
--- NOTE | 2018-08-05 17:06 | Electrocardiograph Report ---
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
== END 2018-08-04 11:34 | disposition home or self-care (01) ==
LOC: 3BNU 14:21 → EMEROOARM 14:21 → SUATTDRO 18:26 → 3BNU 19:18
PROVIDERS: ADMIT Internal Medicine; ATTEND Internal Medicine

== ENCOUNTER 2020-09-13 15:18 | Observation (INO) ==
[2020-09-13] MEDS ORDERED: Naloxone 0.4 MG/ML INJ IVP PRN (18:44)
[2020-09-13] MEDS ORDERED: Ondansetron 4 MG/2 ML VIAL IVP PRN (18:44)
[2020-09-13] MEDS ORDERED: Acetaminophen 325 MG TABLET PO PRN (19:31)
[2020-09-13] MEDS: 0.9 % Sodium Chloride 1,000 ML IVC SCH (20:22)
[2020-09-13] MEDS ORDERED: *HR* Dextrose 50 % in Water (Vial) 50 ML VIAL IVP PRN (21:42)
[2020-09-13] MEDS ORDERED: D5% in Water 1,000 ML IVC PRN (21:42)
[2020-09-13] MEDS ORDERED: Dextrose Gel 15 GM/37.5 ML TUBE PO PRN ×2 (21:42)
[2020-09-13] MEDS ORDERED: *HR* Heparin 5,000 UNIT/ML VIAL IVP PRN ×2 (21:50)
[2020-09-13] MEDS ORDERED: Heparin 25,000UNIT/250ML 1/2NS 25,000 UNIT/250 ML IV.SOLN IVC SCH (22:00)
[2020-09-13 22:56] LABS: Hematocrit 27.1 % (37.5-50.1); Hemoglobin 8.5 g/dL (12.9-16.9); Mean Corpuscular HGB Conc 31.4 g/dL (31.6-35.5); Mean Corpuscular Volume 98.9 fL (83.0-100.0); Mean Platelet Volume 10.3 fL (9.4-12.4); Platelet Count 324 K/mcL (140-400); Red Blood Count 2.74 M/mcL (4.19-5.50); White Blood Count 18.4 K/mcL (4.3-11.1)
[2020-09-13] MEDS: Insulin LISPRO 300 UNITS/3 ML VIAL SQ SCH (23:04)
[2020-09-13] MEDS ORDERED: Haloperidol Lactate 5 MG/ML VIAL IVP ONE (23:26)
[2020-09-13 23:27] LABS: Activated Partial Thrombo Time 26.1 Seconds (26.0-36.0)
[2020-09-13 23:37] LABS: INR 3.7; Prothrombin Time 41.5 Seconds (9.4-12.1)
[2020-09-13 23:44] LABS: Heparin anti-factor XA UFH 1.82 IU/mL (0.30-0.70)
[2020-09-14] MEDS: Heparin 25,000UNIT/250ML 1/2NS 25,000 UNIT/250 ML IV.SOLN IVC SCH ×2 (00:03→23:07)
[2020-09-14] MEDS: Piperacillin/Tazobactam 3.375 GM in 0.9 % Sodium Chloride Mini Bag 100 ML IVPB SCH ×3 (00:18→18:19)
[2020-09-14 06:14] LABS: Hematocrit 26.5 % (37.5-50.1); Hemoglobin 8.5 g/dL (12.9-16.9); Mean Corpuscular HGB Conc 32.1 g/dL (31.6-35.5); Mean Corpuscular Hemoglobin 31.6 pg (28.0-33.3); Mean Corpuscular Volume 98.5 fL (83.0-100.0); Mean Platelet Volume 10.5 fL (9.4-12.4); Platelet Count 286 K/mcL (140-400); Red Blood Count 2.69 M/mcL (4.19-5.50); White Blood Count 16.5 K/mcL (4.3-11.1)
[2020-09-14 06:28] LABS: INR 3.3; Prothrombin Time 36.4 Seconds (9.4-12.1)
[2020-09-14 06:36] LABS: BUN/Creatinine Ratio 31 (6-26); Blood Urea Nitrogen 33 mg/dL (8-23); Calcium 8.2 mg/dL (8.6-10.3); Carbon Dioxide 19 mEq/L (23-29); Chloride 117 mEq/L (98-107); Glucose 115 mg/dL (70-105); Magnesium 2.3 mg/dL (1.6-2.6); Osmolality,Calculated 304 (280-300); Phosphorous 3.2 mg/dL (2.7-4.5); Potassium 3.6 mEq/L (3.5-5.1); Sodium 143 mEq/L (136-145); eGFR For African Americans > 60 (> 60); eGFR For Non-African Americans > 60 (> 60)
[2020-09-14] MEDS: Insulin LISPRO 300 UNITS/3 ML VIAL SQ SCH ×3 (07:56→17:54)
[2020-09-14] MEDS: 0.9 % Sodium Chloride 1,000 ML IVC SCH (08:31)
[2020-09-14] MEDS ORDERED: Melatonin 3 MG TABLET PO PRN (09:40)
[2020-09-14 13:37] LABS: Adenovirus Not Detected (Not Detect); Bordetella Pertussis Not Detected (Not Detect); Chlamydophila pneumoniae Not Detected (Not Detect); Coronavirus 229E Not Detected (Not Detect); Coronavirus HKU1 Not Detected (Not Detect); Coronavirus NL63 Not Detected (Not Detect); Coronavirus OC43 Not Detected (Not Detect); Human Metapneumovirus Not Detected (Not Detect); Human Rhinovirus/Enterovirus Not Detected (Not Detect); Influenza A Subtype 2009 H1 Not Detected (Not Detect); Influenza B Not Detected (Not Detect); Mycoplasma pneumoniae Not Detected (Not Detect); Parainfluenza Virus 1 Not Detected (Not Detect); Parainfluenza Virus 2 Not Detected (Not Detect); Parainfluenza Virus 3 Not Detected (Not Detect); Parainfluenza Virus 4 Not Detected (Not Detect); Respiratory Syncytial Virus Not Detected (Not Detect); SARS-CoV-2 Not Detected (Not Detect)
[2020-09-14] MEDS: hydrALAZINE 25 MG TABLET PO SCH ×2 (18:23→23:08)
[2020-09-14] MEDS: carvediloL 6.25 MG TABLET PO SCH (18:23)
[2020-09-14] MEDS ORDERED: *HR* HYDROmorphone PF 0.5 MG/0.5 ML SYRINGE IVP PRN (20:04)
[2020-09-14] MEDS ORDERED: *HR* Propofol 200 MG/20 ML VIAL IVP ONE (20:09)
[2020-09-14] MEDS ORDERED: *HR* FentaNYL (PF) 100 MCG/2 ML VIAL ONE (20:09)
[2020-09-14] MEDS ORDERED: Dexamethasone 4 MG/ML VIAL ONE (20:35)
[2020-09-14] MEDS ORDERED: Ondansetron 4 MG/2 ML VIAL ONE (20:35)
[2020-09-14] MEDS ORDERED: *HR* Succinylcholine 200 MG/10 ML VIAL IVP ONE (20:35)
[2020-09-14] MEDS ORDERED: Lidocaine -MPF 2% 2 ML VIAL ONE (20:35)
[2020-09-14] MEDS: Ringers Solution, Lactated 1,000 ML IVC SCH (22:58)
[2020-09-15] MEDS: Piperacillin/Tazobactam 3.375 GM in 0.9 % Sodium Chloride Mini Bag 100 ML IVPB SCH ×2 (04:06→12:35)
[2020-09-15 05:46] LABS: Hematocrit 27.3 % (37.5-50.1); Hemoglobin 8.6 g/dL (12.9-16.9); Mean Corpuscular HGB Conc 31.5 g/dL (31.6-35.5); Mean Corpuscular Hemoglobin 31.2 pg (28.0-33.3); Mean Corpuscular Volume 98.9 fL (83.0-100.0); Mean Platelet Volume 10.7 fL (9.4-12.4); Platelet Count 299 K/mcL (140-400); Red Blood Count 2.76 M/mcL (4.19-5.50); Red Cell Distribution Width 14.4 % (11.5-14.5); White Blood Count 16.7 K/mcL (4.3-11.1)
[2020-09-15 06:03] LABS: BUN/Creatinine Ratio 31 (6-26); Blood Urea Nitrogen 33 mg/dL (8-23); Calcium 8.3 mg/dL (8.6-10.3); Carbon Dioxide 18 mEq/L (23-29); Chloride 119 mEq/L (98-107); Glucose 107 mg/dL (70-105); Magnesium 2.2 mg/dL (1.6-2.6); Osmolality,Calculated 310 (280-300); Phosphorous 3.7 mg/dL (2.7-4.5); Potassium 4.3 mEq/L (3.5-5.1); Sodium 146 mEq/L (136-145); eGFR For African Americans > 60 (> 60); eGFR For Non-African Americans > 60 (> 60)
[2020-09-15 06:07] LABS: % Iron Saturation 12 % (20-55); Iron 18 mcg/dL (65-175); Transferrin 107 mg/dL (203-362)
[2020-09-15 06:25] LABS: Ferritin 1452 ng/mL (20-250)
[2020-09-15 06:30] LABS: Folate 5.4 ng/mL (3.0-16.0)
[2020-09-15] MEDS: Insulin LISPRO 300 UNITS/3 ML VIAL SQ SCH ×3 (06:54→17:12)
[2020-09-15] MEDS: hydrALAZINE 25 MG TABLET PO SCH ×3 (10:22→23:56)
[2020-09-15] MEDS: Aspirin Enteric Coated 81 MG Tablet PO SCH (10:22)
[2020-09-15] MEDS: carvediloL 6.25 MG TABLET PO SCH ×2 (10:22→16:34)
[2020-09-15] MEDS: amLODIPine 5 MG TABLET PO SCH (10:22)
[2020-09-15] MEDS: Ringers Solution, Lactated 1,000 ML IVC SCH (12:34)
[2020-09-15 16:13] LABS: BUN/Creatinine Ratio 31 (6-26); Blood Urea Nitrogen 33 mg/dL (8-23); Carbon Dioxide 19 mEq/L (23-29); Chloride 121 mEq/L (98-107); Glucose 119 mg/dL (70-105); Osmolality,Calculated 314 (280-300); Potassium 4.1 mEq/L (3.5-5.1); Sodium 148 mEq/L (136-145); eGFR For African Americans > 60 (> 60); eGFR For Non-African Americans > 60 (> 60)
[2020-09-15 16:18] LABS: Bilirubin,Urine Negative (Negative); Blood,Urine Small (Negative); Clarity,Urine Clear (Clear); Color,Urine Light-Yellow (Yellow); Glucose,Urine (UA) Normal (Normal); Ketones,Urine Negative (Negative); Leukocyte Esterase,Urine Negative (Negative); Nitrite,Urine Negative (Negative); Protein,Urine Trace mg/dL (Neg-Trace); RBC,Urine 0-3 per hpf (0-3); Specific Gravity,Urine 1.021 (1.010-1.025); Squamous Epithelial Cell,Urine Few per hpf (None-Few); Urobilinogen,Urine Normal (Normal); WBC,Urine 0-3 per hpf (0-3)
[2020-09-15] MEDS ORDERED: D5% in Water 1,000 ML IVC SCH (16:45)
[2020-09-15] MEDS: Ampicillin/Sulbactam 1,500 MG in 0.9 % Sodium Chloride Mini Bag 100 ML IVPB SCH ×2 (17:40→23:42)
[2020-09-15 17:45] LABS: INR 2.9; Prothrombin Time 32.7 Seconds (9.4-12.1)
[2020-09-15 17:48] LABS: Activated Partial Thrombo Time 25.5 Seconds (26.0-36.0)
[2020-09-15] MEDS: Heparin 25,000UNIT/250ML 1/2NS 25,000 UNIT/250 ML IV.SOLN IVC SCH (18:45)
[2020-09-15 20:47] LABS: BUN/Creatinine Ratio 36 (6-26); Blood Urea Nitrogen 38 mg/dL (8-23); Carbon Dioxide 18 mEq/L (23-29); Chloride 121 mEq/L (98-107); Glucose 150 mg/dL (70-105); Osmolality,Calculated 316 (280-300); Potassium 3.9 mEq/L (3.5-5.1); Sodium 147 mEq/L (136-145); eGFR For African Americans > 60 (> 60); eGFR For Non-African Americans > 60 (> 60)
[2020-09-16] MEDS: D5% in Water 1,000 ML IVC SCH ×2 (03:37→10:31)
[2020-09-16] MEDS: Ampicillin/Sulbactam 1,500 MG in 0.9 % Sodium Chloride Mini Bag 100 ML IVPB SCH ×3 (05:30→18:36)
[2020-09-16 06:24] LABS: Hematocrit 20.9 % (37.5-50.1); Mean Corpuscular HGB Conc 31.1 g/dL (31.6-35.5); Mean Corpuscular Hemoglobin 30.8 pg (28.0-33.3); Mean Corpuscular Volume 99.1 fL (83.0-100.0); Mean Platelet Volume 10.2 fL (9.4-12.4); Platelet Count 230 K/mcL (140-400); Red Blood Count 2.11 M/mcL (4.19-5.50); Red Cell Distribution Width 14.6 % (11.5-14.5); White Blood Count 13.2 K/mcL (4.3-11.1)
[2020-09-16 06:25] LABS: Hemoglobin 6.5 g/dL (12.9-16.9)
[2020-09-16 06:31] LABS: INR 3.8
[2020-09-16 06:46] LABS: BUN/Creatinine Ratio 35 (6-26); Blood Urea Nitrogen 37 mg/dL (8-23); Calcium 7.8 mg/dL (8.6-10.3); Carbon Dioxide 19 mEq/L (23-29); Chloride 118 mEq/L (98-107); Glucose 197 mg/dL (70-105); Magnesium 2.2 mg/dL (1.6-2.6); Osmolality,Calculated 312 (280-300); Phosphorous 2.9 mg/dL (2.7-4.5); Potassium 3.7 mEq/L (3.5-5.1); Sodium 144 mEq/L (136-145); eGFR For African Americans > 60 (> 60); eGFR For Non-African Americans > 60 (> 60)
[2020-09-16] MEDS ORDERED: 0.9 % Sodium Chloride 250 ML IVC SCH (08:30)
[2020-09-16] MEDS ORDERED: 0.9 % Sodium Chloride 250 ML ONE ×2 (10:03→14:11)
[2020-09-16] MEDS: hydrALAZINE 25 MG TABLET PO SCH (10:09)
[2020-09-16] MEDS: Aspirin Enteric Coated 81 MG Tablet PO SCH (10:09)
[2020-09-16] MEDS: carvediloL 6.25 MG TABLET PO SCH (10:09)
[2020-09-16] MEDS: amLODIPine 5 MG TABLET PO SCH (10:09)
[2020-09-16] MEDS: Insulin LISPRO 300 UNITS/3 ML VIAL SQ SCH ×3 (10:31→17:56)
[2020-09-16 11:58] LABS: Basophils # 0.1 K/mcL (0.0-0.2); Basophils % 0.4 %; Eosinophils # 0.3 K/mcL (0.0-0.6); Eosinophils % 2.5 %; Hematocrit 20.8 % (37.5-50.1); Hemoglobin 6.7 g/dL (12.9-16.9); Immature Granulocytes % 0.9 % (0-4); Lymphocytes # 1.2 K/mcL (0.6-4.6); Lymphocytes % 8.6 %; Mean Corpuscular HGB Conc 32.2 g/dL (31.6-35.5); Mean Corpuscular Hemoglobin 31.3 pg (28.0-33.3); Mean Corpuscular Volume 97.2 fL (83.0-100.0); Mean Platelet Volume 10.2 fL (9.4-12.4); Monocytes # 0.9 K/mcL (0.0-1.3); Monocytes % 6.5 %; Nucleated Red Blood Cells 0.1 /100 WBC (0); Platelet Count 235 K/mcL (140-400); Red Blood Count 2.14 M/mcL (4.19-5.50); Red Cell Distribution Width 14.6 % (11.5-14.5); Segmented Neutrophils % 81.1 %; White Blood Count 13.6 K/mcL (4.3-11.1)
[2020-09-16 12:17] LABS: BUN/Creatinine Ratio 36 (6-26); Blood Urea Nitrogen 37 mg/dL (8-23); Calcium 7.8 mg/dL (8.6-10.3); Carbon Dioxide 20 mEq/L (23-29); Chloride 115 mEq/L (98-107); Glucose 188 mg/dL (70-105); Osmolality,Calculated 310 (280-300); Potassium 3.6 mEq/L (3.5-5.1); Sodium 143 mEq/L (136-145); eGFR For African Americans > 60 (> 60); eGFR For Non-African Americans > 60 (> 60)
[2020-09-16 12:24] LABS: VBG Ionized Calcium 1.18 mmol/L (1.15-1.35)
[2020-09-16] MEDS ORDERED: Melatonin 3 MG TABLET GTUBE PRN (13:51)
[2020-09-16] MEDS ORDERED: Naloxone 0.4 MG/ML INJ IVP PRN (15:52)
[2020-09-16] MEDS ORDERED: hydrALAZINE 25 MG TABLET GTUBE SCH (16:00)
[2020-09-16] MEDS ORDERED: carvediloL 6.25 MG TABLET GTUBE SCH (17:00)
[2020-09-16 19:42] LABS: Hematocrit 22.5 % (37.5-50.1); Hemoglobin 7.2 g/dL (12.9-16.9); Mean Corpuscular Volume 93.8 fL (83.0-100.0); Mean Platelet Volume 10.5 fL (9.4-12.4); Platelet Count 188 K/mcL (140-400); Red Cell Distribution Width 15.5 % (11.5-14.5); White Blood Count 14.2 K/mcL (4.3-11.1)
[2020-09-16 19:46] LABS: INR 2.7; Prothrombin Time 30.7 Seconds (9.4-12.1)
[2020-09-16 23:14] VITALS: BP 130/62
[2020-09-17] MEDS ORDERED: Pantoprazole 40 MG VIAL IVP SCH (06:00)
[2020-09-17] MEDS ORDERED: amLODIPine 5 MG TABLET GTUBE SCH (09:00)
== END 2020-09-17 00:06 | disposition short-term general hospital (02) ==
LOC: 3ANU → SUATTDRO 18:13
PROVIDERS: ADMIT Internal Medicine; ATTEND Internal Medicine